=== PATIENT | male | born 1970 | race Caucasian/White ===

== ENCOUNTER → 2017-02-06 | Outpatient (CLI) | payer BC ==
[~2017-02-06] MED LIST: OXCA600T2 PO
--- NOTE | 2017-02-06 13:27 | DIAGNOSTIC IMAGING REPORT ---
LEFT FOREARM 2 VIEWS ROUTINE CLINICAL HISTORY: LEFT ELBOW AND ARM PAIN COMPARISON: None. DISCUSSION: The bones and joint spaces appear intact. There is no evidence of fracture, dislocation or bony disease. There is no evidence for soft tissue swelling. IMPRESSION: Negative study. The above report was generated using voice recognition software. It may contain grammatical, syntax or spelling errors. Electronically signed by: Kushal Cervantes M.D. 02/06/2017 1:26 PM Dictated Date/Time: 02/06/2017 1:25 PM
--- NOTE | 2017-02-06 13:27 | DIAGNOSTIC IMAGING REPORT ---
LEFT HUMERUS MIN 2 VIEWS ROUTINE CLINICAL HISTORY: LEFT ELBOW LEFT ARM PAIN COMPARISON: None. DISCUSSION: The bones and joint spaces appear intact. There is no evidence of fracture, dislocation or bony disease. There is no evidence for soft tissue swelling. IMPRESSION: Negative study. The above report was generated using voice recognition software. It may contain grammatical, syntax or spelling errors. Electronically signed by: Kushal Cervantes M.D. 02/06/2017 1:26 PM Dictated Date/Time: 02/06/2017 1:26 PM
--- NOTE | 2017-02-06 13:28 | DIAGNOSTIC IMAGING REPORT ---
LEFT ELBOW MIN 3 VIEWS ROUTINE CLINICAL HISTORY: LEFT ELBOW COMPARISON: None. DISCUSSION: The bones and joint spaces appear intact. There is no evidence of fracture, dislocation or bony disease. Mild soft tissue edema IMPRESSION: Negative study. Mild soft tissue edema The above report was generated using voice recognition software. It may contain grammatical, syntax or spelling errors. Electronically signed by: Kushal Cervantes M.D. 02/06/2017 1:27 PM Dictated Date/Time: 02/06/2017 1:27 PM
== END | disposition home or self-care (01) ==
LOC: C.RAD1850 12:24
PROVIDERS: ATTEND Physician Assistant Medical
DX: S49.92XA Unspecified injury of left shoulder and upper arm, initial encounter (principal); X58.XXXA Exposure to other specified factors, initial encounter

== ENCOUNTER → 2017-04-08 | Outpatient (CLI) | payer BC ==
--- NOTE | 2017-04-08 09:53 | DIAGNOSTIC IMAGING REPORT ---
RIGHT KNEE MRI HISTORY: RIGHT KNEE PAIN Right COMPARISON STUDY: Right knee 04/02/2017. TECHNIQUE: Multiplanar multisequence MRI of the right knee was performed according to standard department protocol without the use of contrast. FINDINGS: Menisci: The lateral meniscus is intact. Diminutive appearance to the majority of the medial meniscus. This could be due to prior partial meniscectomy. Anterior to the PCL is a 7 mm hypointense focus. This could represent a tear at the posterior root of the medial meniscus. Ligaments: Prior ACL repair. The graft appears to be intact. The PCL and LCL are intact. Mild thickening of the proximal MCL may be due to an old injury. No acute tear identified. Mild edema surrounding the PCL. Extensor mechanism: The quadriceps tendon and patellar ligament are intact. Articular cartilage and bone: No acute fracture or dislocation. Mild subchondral edema within the medial femoral condyle. There is mild thickening and heterogeneous signal within the cartilage of the medial femoral condyle and medial tibial plateau. This is consistent with a chondromalacia. Remaining cartilage spaces are maintained. Joint effusion: None. Soft tissues: Mild anterior subcutaneous edema. IMPRESSION: 1. Prior ACL repair. The graft appears intact. 2. Mild thickening of the proximal MCL without surrounding edema. Therefore, this favors an old injury. 3. Mild edema surrounding the intact PCL. 4. Diminutive appearance to the medial meniscus which favors a partial meniscectomy. There is also a 7 mm hypointense focus anterior to the distal PCL attachment. This could represent a tear at the posterior root of the medial meniscus. 5. Medial chondromalacia.. 6. Mild anterior subcutaneous edema. Electronically signed by: Lennox Xie M.D. 04/08/2017 9:52 AM Dictated Date/Time: 04/08/2017 9:36 AM
== END | disposition home or self-care (01) ==
LOC: C.MRIBC 08:52
PROVIDERS: ATTEND Orthopaedic Surgery
DX: M25.561 Pain in right knee (principal); M94.261 Chondromalacia, right knee; R60.9 Edema, unspecified

== ENCOUNTER 2019-05-01 15:01 | Observation (INO) ==
--- OUTSIDE RECORDS SUMMARY | 2019-05-01 15:04 | External Medical Summary | Continuity of Care Document ---
:1970 Author Name Akshat Orozco Address Unavailable Unavailable , Care Team Providers Name Role Phone Unavailable Unavailable Unavailable AIDEN TELLES M.D., Mary Unavailable Unavailab le Unavailable Unavailable Unavailable Problems Elevated blood pressure (not hypertension) (796.2) (R03.0) History of nicotine dependence (V15.82) (Z87.891) Status: Resolved Right knee pain (719.46) (M25.561) Low O2 saturation (790.91) (R79.81) Chronic low back pain (724.2) (M54.5) Hypertriglyceridemia (272.1) (E78.1) Impaired fasting glucose (790.21) (R73.01) History of [place] (296.00) (F30.9) Status : Resolved OCD (obsessive compulsive disorder) (300.3) (F42.9) Muscle weakness of left arm (728.87) (M62.81) Left upper arm injury (959.2) (S49.92XA) Obstructive pattern present on pulmonary function testing (7 94.2) (R94.2) Abnormal PFTs (pulmonary function tests) (794.2) (R94.2) Flank pain (789.09) (R10.9) Hematuria (599.70) (R31.9) Irritable mood (799.22) (R45.4) 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 Refills: 0 Procedures History of Knee Arthroscopy With Anterior Cruciate Ligament Status: Completed Repair History of Knee Arthroscopy (Therapeutic) Status: Completed Immunizations Immunizations not documented Family History Father Family history of Diabetes Mellitus (V18.0) Status: Active Family history of hypertension (V17.49) (Z82.49) Status: Act ayla Family history of cardiac disorder (V17.49) (Z82.49) Status: Active Family history of diabetes mellitus (V18.0) (Z83.3) Status: Active Social History - Smoking Status Smoker. current status unknown Plan of Treatment Planned Observations Planned Goals not documented Results No Known Results Results not documented
[2019-05-01] MEDS ORDERED: ONDANSETRON INJ 2 MG/ML 2 ML VIAL IV STA (15:57)
[2019-05-01] MEDS ORDERED: SODIUM CHLORIDE 0.9% 1000ML 2,000 ML IV ONE (15:57)
[2019-05-01 16:19] LABS: Appearance Urine Clear (Clear); Bilirubin Urine Negative (Negative); Blood Urine Negative (Negative); Color Urine Yellow; Glucose Urine UA Negative (Negative); Ketones Urine Negative (Negative); Leukocyte Esterase Urine Negative (Negative); Nitrite Urine Negative (Negative); Protein Urine Negative (Negative); Specific Gravity Urine 1.023 (1.000-1.030); Urobilinogen Urine Negative (Negative); pH Urine 7.5 (4.5-7.5)
[2019-05-01 16:29] LABS: Basophils # (auto) 0.03 K/uL (0-0.2); Basophils % (auto) 0.2 %; Eosinophils # (auto) 0.08 K/uL (0-0.5); Eosinophils % (auto) 0.6 %; Hemoglobin 17.2 g/dL (14.0-18.0); Immature Granulocytes # (auto) 0.03 K/uL (0.00-0.02); Immature Granulocytes % (auto) 0.2 %; Lymphocytes # (auto) 1.53 K/uL (1.2-3.4); Lymphocytes % (auto) 11.9 %; Mean Corpuscular Hemoglobin 32.8 pg (25-34); Mean Corpuscular Hgb Conc 35.8 g/dL (32-36); Mean Corpuscular Volume 91.6 fL (80-100); Mean Platelet Volume 11.6 fL (7.4-10.4); Monocytes # (auto) 0.62 K/uL (0.11-0.59); Monocytes % (auto) 4.8 %; Neutrophils # (auto) 10.62 K/uL (1.4-6.5); Neutrophils % (auto) 82.3 %; Platelet Count 166 K/uL (130-400); RDW Coefficient of Variation 12.4 % (11.5-14.5); RDW Standard Deviation 41.6 fL (36.4-46.3); Red Blood Count 5.24 M/uL (4.7-6.1); White Blood Count 12.91 K/uL (4.8-10.8)
[2019-05-01 16:30] LABS: Albumin Level 4.2 gm/dl (3.4-5.0); BUN Creatinine Ratio 15.9 (10-20); Calcium 9.9 mg/dl (8.5-10.1); Creatinine Clr Calc Pharmacy 80.9 ml/min; Est GFR (African American) 73.2; Est GFR (Non-African American) 63.2; Potassium 4.4 mmol/L (3.5-5.1)
[2019-05-01 16:33] LABS: Albumin Globulin Ratio 1.1 (0.9-2); Bilirubin,Total 0.6 mg/dl (0.2-1); Globulin 3.9 gm/dl (2.5-4.0); Total Protein 8.1 gm/dl (6.4-8.2)
--- NOTE | 2019-05-01 16:47 | CT Scan Report ---
ABDOMEN AND PELVIS CT WITHOUT CONTRAST CT DOSE: 935.24 mGy.cm HISTORY: Right-sided flank pain. Right upper quadrant pain. TECHNIQUE: Multiaxial CT images of the abdomen and pelvis were performed without contrast. A dose lo wering technique was utilized adhering to the principles of ALARA. COMPARISON STUDY: None. FINDINGS: Bibasilar linear densities and groundglass densities favor subsegmental atelectasis/depende nt change. No pneumoperitoneum. No pneumatosis. No suspicious lytic or blastic osseous lesions. The l iver, spleen, adrenal glands, and pancreas are unremarkable. No renal or ureteral stones. No hydronep hrosis. No retroperitoneal lymphadenopathy. Bladder wall thickening may be due to underdistention. Th e prostate gland is slightly enlarged. No retroperitoneal lymphadenopathy. The gallbladder is distend ed and there is mild inflammatory change surrounding the gallbladder. Therefore, this likely represen ts acute cholecystitis. Suboptimal evaluation for bowel pathology due to the lack of intravenous and oral contrast. However, there is no definite bowel wall thickening or obstruction. Normal appendix. A few colonic diverticula. No evidence for diverticulitis. The third portion of the duodenum does not clearly cross the midline and the majority of the small bowel is located at the right side of the abd omen. However, the cecum is also located within the right side of the abdomen. Therefore, this sugges ts a variant of intestinal malrotation. IMPRESSION: 1. Distended gallbladder with surrounding inflammatory change. This is consistent with acute cholecys titis. 2. No renal or ureteral stones. No hydronephrosis. 3. No definite bowel wall thickening or obstruction. 4. Normal appendix. 5. The third portion of the duodenum does not clearly cross the midline and the majority of the small bowel is located at the right side of the abdomen. However, the cecum is also located within the rig ht side of the abdomen. Therefore, this suggests a variant of intestinal malrotation. Electronically signed by: Lennox Xie M.D. 05/01/2019 4:46 PM
[2019-05-01] MEDS ORDERED: PIPERACILLIN/TAZOBACTAM 4.5 GM/120 ML BAG IV ONE (17:09)
[2019-05-01] MEDS ORDERED: PIPERACILL/TAZOBAC CONSULT ACTIVE PRN (17:09)
[2019-05-01] MEDS ORDERED: MoRPHine SULFATE 4 MG/ML 1 ML CARP\\VIAL IV STA (17:11)
[2019-05-01] MEDS ORDERED: ePHEDrine sulfate 50 MG/ML SYR ONE (18:17)
[2019-05-01] MEDS ORDERED: fentaNYL citrate 100 MCG/2 ML VIAL ONE (18:17)
[2019-05-01] MEDS ORDERED: ROCURONIUM BROMIDE 10 MG/ML 5 ML VIAL ONE (18:17)
[2019-05-01] MEDS ORDERED: LIDOCAINE HCL 2% 2 ML VIAL/AMP(20MG/ML) INFIL ONE (18:17)
[2019-05-01] MEDS ORDERED: MEPERIDINE HCL 25 MG/ML CARP IV PRN (18:17)
[2019-05-01] MEDS ORDERED: ONDANSETRON INJ 2 MG/ML 2 ML VIAL ONE ×2 (18:17→18:52)
[2019-05-01] MEDS ORDERED: fentaNYL citrate 100 MCG/2 ML VIAL IV PRN (18:17)
[2019-05-01] MEDS ORDERED: ONDANSETRON INJ 2 MG/ML 2 ML VIAL IV PRN (18:17)
[2019-05-01] MEDS ORDERED: PROPOFOL IV EMULSION 10 MG/ML 20 ML VIAL IV ONE (18:17)
[2019-05-01] MEDS ORDERED: NEOSTIGMINE METHYLSULFATE 5 MG/5 ML SYR ONE (18:17)
[2019-05-01] MEDS ORDERED: GLYCOPYRROLATE 0.2 MG/ML VIAL ONE (18:17)
[2019-05-01] MEDS ORDERED: HYDROmorphone INJ 1 MG/ML SYRINGE IV PRN (18:17)
[2019-05-01] MEDS ORDERED: LARYING-O-JET KIT (LTA) ONE (18:17)
[2019-05-01] MEDS ORDERED: PHENYLEPHRINE 100MCG/ML 5ML SYR IV PRN (18:17)
[2019-05-01] MEDS ORDERED: LABETALOL HCL IV 5 MG/ML 20ML IV PRN (18:17)
[2019-05-01] MEDS ORDERED: DEXAMETHASONE SOD INJ 4 MG/ML VIAL ONE ×2 (18:17→18:52)
[2019-05-01] MEDS ORDERED: ATROPINE SULFATE 0.1 MG/ML 10ML SYR IV PRN (18:17)
[2019-05-01] MEDS ORDERED: MIDAZOLAM HCL 1 MG/ML 2ML VIAL ONE (18:17)
[2019-05-01] MEDS ORDERED: ePHEDrine sulfate 50 MG/ML AMP IV PRN (18:17)
--- NOTE | 2019-05-01 18:22 | History & Physical Report ---
Date of Service May 01, 2019 Assessment & Plan (1) S/P ACL surgery: (2) Acute cholecystitis: This patient has right upper quadrant pain with a mildly elevated white blood cell count. He also has CT findings consistent with acute cholecystitis. There is also tenderness in the right upper quadrant. I recommended a laparoscopic cholecystectomy. He has agreed. Of explained to him the procedure of a laparoscopic cholecystectomy and the possible need to convert to an open procedure. I explained some of the possible complications and answered his questions. He has signed a consent form. He also has a variant with possible malrotation although the cecum is in its expected position it does not appear that the duodenum crosses the midline. In review of this with radiology, there does not appear to be any acute issues by CT criteria associated with these findings History of Present Illness Chief Complaint: Right upper quadrant abdominal pain with nausea and vomiting Primary Care Provider: Chadwick Tomlinson MD This is a 49-year-old male who presented to the emergency room with a complaint of pain in the midepigastric area and right upper quadrant. It began this morning after having eaten eggs for breakfast. He stated that the pain was located in the epigastric area and radiated around in the right subcostal region towards his side. It did not go through to his back. He has never had pain in this area before. He has nausea and has had multiple episodes of vomiting. The antiemetics here in the emergency room have taken the nausea away. He has never had jaundice hepatitis or pancreatitis. He has no change in his bowel or bladder habits. He denies melena, hematochezia, dysuria and hematuria. He has not had fever or chills with this. Allergies Allergy/AdvReac Type Severity Reaction Status Date / Time No Known Allergies Allergy Unverified 12/19/15 08:59 Home Medications Home Medications Medication Instructions Recorded Confirmed Type Oxcarbazepine (Trileptal) 600 mg PO BID #0 tab 12/12/15 History Past Med/Surg History Surgical History S/P ACL surgery Right Social History Feels Safe at Home: Yes Smoking Status: Current every day smoker Hx Alcohol Use: Yes (occasional) Review of Systems Review of Systems: All systems reviewed & are unremarkable except as noted in HPI & below Physical Exam Constitutional: no acute distress Neck: trachea midline Respiratory: normal respiratory effort, lungs clear to auscultation Cardiovascular: Rate/Rhythm: regular rate and regular rhythm Gastrointestinal (Abdomen): Inspection/Auscultation: abdomen not distended Percussion/Palpation: + abdomen tender (RUQ and periumbilical area) and abdomen soft Skin: no rashes, warm and dry Lymphatic: no cervical lymphadenopathy Results & Data Vital Signs (Past 12 Hours) Vital Signs Temp Pulse Pulse Resp BP Pulse Ox 05/01/19 17:01 80 19 171/109 H 98 05/01/19 15:52 96 05/01/19 15:43 36.8 C 87 20 96 Laboratory Results 05/01/19 05/01/19 05/01/19 Range/Units 16:08 15:52 15:52 WBC 12.91 H (4.8-10.8) K/uL RBC 5.24 (4.7-6.1) M/uL Hgb 17.2 (14.0-18.0) g/dL Hct 48.0 (42-52) % MCV 91.6 (80-100) fL MCH 32.8 (25-34) pg MCHC 35.8 (32-36) g/dL RDW Std Deviation 41.6 (36.4-46.3) fL RDW Coeff of Aneudy 12.4 (11.5-14.5) % Plt Count 166 (130-400) K/uL MPV 11.6 H (7.4-10.4) fL Immature Gran % (Auto) 0.2 % Neut % (Auto) 82.3 % Lymph % (Auto) 11.9 % [place] % (Auto) 4.8 % Eos % (Auto) 0.6 % Baso % (Auto) 0.2 % Immature Gran # (Auto) 0.03 H (0.00-0.02) K/uL Neut # (Auto) 10.62 H (1.4-6.5) K/uL Lymph # (Auto) 1.53 (1.2-3.4) K/uL [place] # (Auto) 0.62 H (0.11-0.59) K/uL Eos # (Auto) 0.08 (0-0.5) K/uL Baso # (Auto) 0.03 (0-0.2) K/uL Sodium 142 (136-145) mmol/L Potassium 4.4 (3.5-5.1) mmol/L Chloride 107 (98-107) mmol/L Carbon Dioxide 29 (21-32) mmol/L Anion Gap 6.0 (3-11) BUN 21 H (7-18) mg/dl Creatinine 1.30 (0.6-1.4) mg/dl Est Cr Clr Drug Dosing 80.9 ml/min Est GFR ( Amer) 73.2 Est GFR (Non-Af Amer) 63.2 BUN/Creatinine Ratio 15.9 (10-20) Glucose 131 H (70-99) mg/dl Calcium 9.9 (8.5-10.1) mg/dl Total Bilirubin 0.6 (0.2-1) mg/dl AST 23 (15-37) U/L ALT 41 (12-78) U/L Alkaline Phosphatase 66 (45-117) U/L Total Protein 8.1 (6.4-8.2) gm/dl Albumin 4.2 (3.4-5.0) gm/dl Globulin 3.9 (2.5-4.0) gm/dl Albumin/Globulin Ratio 1.1 (0.9-2) Lipase 122 (73-393) U/L Urine Color Yellow Urine Appearance Clear (Clear) Urine pH 7.5 (4.5-7.5) Ur Specific [place] 1.023 (1.000-1.030) Urine Protein Negative (Negative) Urine Glucose (UA) Negative (Negative) Urine Ketones Negative (Negative) Urine Blood Negative (Negative) Urine Nitrite Negative (Negative) Urine Bilirubin Negative (Negative) Urine Urobilinogen Negative (Negative) Ur Leukocyte Esterase Negative (Negative) Diagnostic Findings ABDOMEN AND PELVIS CT WITHOUT CONTRAST CT DOSE: 935.24 mGy.cm HISTORY: Right-sided flank pain. Right upper quadrant pain. TECHNIQUE: Multiaxial CT images of the abdomen and pelvis were performed without contrast. A dose lowering technique was utilized adhering to the principles of ALARA. COMPARISON STUDY: None. FINDINGS: Bibasilar linear densities and groundglass densities favor s ubsegmental atelectasis/dependent change. No pneumoperitoneum. No pneumatosis. No suspicious lytic or blastic osseous lesions. The liver, spleen, adrenal glands, and pancreas are unremarkable. No renal or ureteral stones. No hydronephrosis. No retroperitoneal lymphadenopathy. Bladder wall thickening may be due to underdistention. The prostate gland is slightly enlarged. No retroperitoneal lymphadenopathy. The gallbladder is distended and there is mild inflammatory change surrounding the gallbladder. Therefore, this likely represents acute cholecystitis. Suboptimal evaluation for bowel pathology due to the lack of intravenous and oral contrast. However, there is no definite bowel wall thickening or obstruction. Normal appendix. A few colonic diverticula. No evidence for diverticulitis. The third portion of the duodenum does not clearly cross the midline and the majority of the small bowel is located at the right side of the abdomen. However, the cecum is also located within the right side of the abdomen. Therefore, this suggests a variant of intestinal malrotation. IMPRESSION: 1. Distended gallbladder with surrounding inflammatory change. This is consistent with acute cholecystitis. 2. No renal or ureteral stones. No hydronephrosis. 3. No definite bowel wall thickening or obstruction. 4. Normal appendix. 5. The third portion of the duodenum does not clearly cross the midline and the majority of the small bowel is located at the right side of the abdomen. However, the cecum is also located within the right side of the abdomen. Therefore, this suggests a variant of intestinal malrotation.
[2019-05-01] MEDS ORDERED: CEFAZOLIN 250 MG/ML 1 GM VIAL ONE (18:23)
[2019-05-01] MEDS ORDERED: BUPIVACAINE 0.5 % 5 MG/1 ML MPF 30ML VIAL ONE (18:23)
[2019-05-01] MEDS ORDERED: HEPARIN (PORCINE) 1000 UNIT/ML 10 ML (CATH LAB USE ONLY) ONE (18:23)
--- NOTE | 2019-05-01 18:30 | Anesthesiology Consultation ---
Date of Service May 01, 2019 Assessment & Plan (1) Encounter for pre-operative examination: Chart Review Chart Review: Acceptable Risk for Surgery and Patient NOT seen in Pre Admission Testing History Surgery Operation Date: 05/01/19 19:00 Proposed Procedures p Laparoscopic Cholecystectomy - Kushal May MD Height/Weight Height: 5 ft 10 in Weight: 103.1 kg Allergies Allergy/AdvReac Type Severity Reaction Status Date / Time No Known Allergies Allergy Unverified 12/19/15 08:59 Medications Home Medications Medication Instructions Recorded Confirmed Last Taken Oxcarbazepine (Trileptal) 600 mg PO BID #0 tab 12/12/15 Unknown Past Medical History Medical History Obesity Smoker Past Surgical History Surgical History S/P ACL surgery Right Social History Smoking Status: Current every day smoker Hx Alcohol Use: Yes (occasional) Physical Exam Vital Signs Last Vital Signs Temp 36.8 C 05/01/19 15:43 Pulse 80 05/01/19 17:01 Resp 19 05/01/19 17:01 BP 171/109 H 05/01/19 17:01 Pulse Ox 98 05/01/19 17:01 Testing Laboratory Results 05/01/19 15:52 05/01/19 15:52 Urine Color Yellow 05/01/19 16:08 Urine Appearance Clear (Clear) 05/01/19 16:08 Urine pH 7.5 (4.5-7.5) 05/01/19 16:08 Ur Specific [place] 1.023 (1.000-1.030) 05/01/19 16:08 Urine Protein Negative (Negative) 05/01/19 16:08 Urine Glucose (UA) Negative (Negative) 05/01/19 16:08 Urine Ketones Negative (Negative) 05/01/19 16:08 Urine Nitrite Negative (Negative) 05/01/19 16:08 Ur Leukocyte Esterase Negative (Negative) 05/01/19 16:08 Electrocardiogram Date: 05/01/19 Findings: + NSR @ (86)
[2019-05-01] MEDS ORDERED: SUCCINYLCHOLINE CHLORIDE 20 MG/ML 10 ML VIAL ONE (19:38)
[2019-05-01] MEDS ORDERED: KETOROLAC 30 MG/ML VIAL ONE (20:11)
--- NOTE | 2019-05-01 20:37 | Post Operative Brief Note ---
Immediate Post Op Note v1 Date of Surgery May 01, 2019 Pre & Post Diagnosis Operation Date: 05/01/19 19:00 Pre-Op Diagnosis: Acute cholecystitis Post-Op Diagnosis: Acute cholecystitis Procedure Operation Date: 05/01/19 19:00 Actual Procedures p Laparoscopic Cholecystectomy(Not Applicable) - Kushal May MD Surgeon Kushal May MD Hydrographic Surveyor None Estimated Blood Loss 10 Findings Consistent with Post-Op Diagnosis Specimens Gallbladder and contents Anesthesia Type General Complications none
--- NOTE | 2019-05-01 21:03 | Anesthesiology Progress Note ---
Date of Service May 01, 2019 Anesthesia Post Procedure Vital Signs Vital Signs: Temp Pulse Pulse Pulse Resp BP Pulse Ox 05/01/19 21:00 85 16 166/88 H 100 05/01/19 20:51 36.4 C L 91 H 16 150/105 H 97 05/01/19 17:01 80 19 171/109 H 98 05/01/19 15:52 96 05/01/19 15:43 36.8 C 87 20 96 Pain Intensity Abdomen: Pain Intensity: 0 Transfer of Care Handoff Completed per policy Notes Mental Status: alert / awake / arousable Patient Amnestic to Procedure: Yes Nausea / Vomiting: adequately controlled Pain: adequately controlled Airway Patency, RR, SpO2: stable & adequate BP & HR: stable & adequate Hydration State: stable & adequate Anesthetic Complications: no major complications apparent and Pt Satisfied with anesthetic care Notes: The patient is awake and comfortable.
[2019-05-01] MEDS ORDERED: MoRPHine SULFATE 4 MG/ML 1 ML CARP\\VIAL IV PRN (21:39)
[2019-05-01] MEDS ORDERED: OXYCODONE/ACETAMINOPHEN 5mg/325mg TAB PO PRN (21:39)
--- NOTE | 2019-05-01 23:16 | Emergency Department Note ---
Entered by Marlee Moreau acting as a scribe for Eric Cam DO History of Present Illness General Chief complaint: Flank Pain Stated complaint: ABDOMINAL AND KIDNEY PAIN Source: patient History of Present Illness Provider complaint: abdominal pain Onset (ago): hour(s) 5 Location: abdomen and right Radiation: flank Maximum Pain Intensity: 6 Exacerbated By: + movement Associated symptoms: + other (-runny nose); no cough and no fever/chills The patient is a 49 year old male who presents to the Emergency Room with complaints of right upper abdominal pain that started at 1100 today while he was sitting. He reports that the pain radiates to his right flank. He states that he has nausea and vomiting because of the pain. He notes that he has vomited 5-6 times today. The patient states that the maximum pain was 8/10 earlier today, but has now slighted been alleviated. The patient reports that the pain worsens with movement. He denies any cough, runny nose, fever, or chills. The patient denies any past abdominal surgeries. He mentions that his last bowel movement was last night. Home Medications Home Medications Medication Instructions Recorded Confirmed Type Oxcarbazepine (Trileptal) 600 mg PO BID #0 tab 12/12/15 History Allergies Allergy/AdvReac Type Severity Reaction Status Date / Time No Known Allergies Allergy Unverified 12/19/15 08:59 Past Med/Surg History Medical History Obesity Smoker Surgical History S/P ACL surgery Right Social History Preferred Language: Chinese Communication Ability: Effective Hemodialysis Lab Technician Required: No Beliefs That Will Affect Care: None Current Living Situation: Spouse Feels Safe at Home: Yes Safety Concerns: Feels Safe At This Time Smoking Status: Current some day smoker Tobacco Type: cigarettes ; Hx Alcohol Use: Yes Alcohol type: beer Hx Substance Use: No Review of Systems See HPI for pertinent positives & negatives. and A total of 10 systems reviewed and were otherwise negative Physical Exam Vital Signs Vital Signs - 24 hr 05/01/19 15:43 05/01/19 15:52 05/01/19 17:01 Temperature 36.8 C Temperature Source Oral Sepsis Recent Fever Within 48 Hours No Sepsis New/Unexplained Change in Mental Status No Sepsis Action Taken by Nursing No Action Required Pulse Rate 87 Pulse Rate [Apical] Pulse Rate [Finger] 80 Pulse Rhythm [Apical] Respiratory Rate 20 19 Respiratory Effort / Characteristics Respiratory Depth Normal Respiratory Pattern Blood Pressure [Right Arm] 171/109 H Blood Pressure Mean [Right Arm] 129 Blood Pressure Position [Right Arm] Pulse Oximetry 96 96 98 Oxygen Delivery Method Room Air Room Air Room Air Oxygen Flow Rate 05/01/19 20:51 Temperature 36.4 C L Temperature Source Temporal Artery Scan Sepsis Recent Fever Within 48 Hours Sepsis New/Unexplained Change in Mental Status Sepsis Action Taken by Nursing Pulse Rate Pulse Rate [Apical] 91 H Pulse Rate [Finger] Pulse Rhythm [Apical] Regular Respiratory Rate 16 Respiratory Effort / Characteristics Non-Labored Spontaneous Respiratory Depth Normal Respiratory Pattern Regular Blood Pressure [Right Arm] 150/105 H Blood Pressure Mean [Right Arm] 120 Blood Pressure Position [Right Arm] Semi-fowlers Pulse Oximetry 97 Oxygen Delivery Method Oxymask Oxygen Flow Rate 5 GENERAL: sitting up in bed, mild distress, holding right upper quadrant EYE EXAM: normal conjunctiva OROPHARYNX: no exudate, no erythema, lips, buccal mucosa, and tongue normal and mucous membranes are moist NECK: supple, no nuchal rigidity, no adenopathy, non-tender LUNGS: Clear to auscultation. Normal chest wall mechanics HEART: no murmurs, S1 normal and S2 normal ABDOMEN: abdomen soft, tenderness to palpation of right upper quadrant, normo- active bowel sounds, no masses, no rebound or guarding. BACK: Back is symmetrical on inspection and there is no deformity, no midline tenderness, no CVA tenderness. SKIN: no rashes and no bruising UPPER EXTREMITIES: upper extremities are grossly normal. LOWER EXTREMITIES: No pitting edema. NEURO EXAM: Normal sensorium, cranial nerves II-XII grossly intact, normal speech, no gross weakness of arms, no gross weakness of legs. Course ED COURSE: Vital signs were reviewed and showed normotensive. The patients medical record was reviewed The above diagnostic studies were performed and reviewed. ED treatments and interventions as stated above. 1554: The patient was evaluated in room D4B. A complete history and physical examination was performed. 1721: I reviewed the patient's case with Dr. May- General Surgery [facility]. He will evaluate the patient for further management. 1725: Upon reevaluation, the patient is resting comfortably. I discussed my findings with the patient and he understands and agrees with the treatment plan. Based on the patients age, coexisting illnesses, exam and lab findings the decision to treat as an inpatient was made. The patient remained stable while under my care. The patient will be evaluated for further management. Administered Medications Discontinued Medications Bupivacaine HCl (Marcaine 0.5% Mpf) Confirm Administered Dose 30 ml .ROUTE .STK- MED ONE Stop: 05/01/19 18:24 Last Admin: 05/01/19 20:29 Dose: 30 ml Documented by: [id number] Cefazolin Sodium (Ancef) Confirm Administered Dose 1,000 mg .ROUTE .STK-MED ONE Stop: 05/01/19 18:24 Last Admin: 05/01/19 20:13 Dose: 1,000 mg Documented by: [id number] Heparin Sodium (Porcine) (Heparin Iv Bolus (Child Welfare Caseworker Use Only)) Confirm Administered Dose 10,000 units .ROUTE .STK-MED ONE Stop: 05/01/19 18:24 Last Admin: 05/01/19 20:13 Dose: 5,000 units Documented by: [id number] Sodium Chloride (Nss 1000ml) 2,000 mls @ 999 mls/hr IV .Q2H1M ONE Stop: 05/01/19 17:57 Last Infusion: 05/01/19 18:04 Dose: 0 mls/hr Documented by: [id number] Admin: 05/01/19 16:02 Dose: 999 mls/hr Documented by: [id number] Piperacillin Sod/Tazobactam Sod (Zosyn) 4.5 gm in 120 mls @ 240 mls/hr IV NOW ONE Stop: 05/01/19 17:38 Last Infusion: 05/01/19 17:49 Dose: 0 mls/hr Documented by: [id number] Admin: 05/01/19 17:17 Dose: 240 mls/hr Documented by: [id number] Morphine Sulfate (Morphine Sulfate) 4 mg IV NOW STA Stop: 05/01/19 17:12 Last Admin: 05/01/19 17:17 Dose: 4 mg Documented by: [id number] Ondansetron HCl (Zofran) 4 mg IV NOW STA Stop: 05/01/19 15:58 Last Admin: 05/01/19 16:03 Dose: 4 mg Documented by: [id number] Medical Decision Making Differential Diagnosis Differential diagnoses includes but is not limited to gastritis, peptic ulcer disease, GERD, gallbladder disease, pancreatitis, small bowel obstruction, acute coronary syndrome, pericarditis, ischemic bowel, irritable bowel disease, irritable bowel syndrome, appendicitis, diverticulitis, malignancy, hernia, uri nary tract infection, torsion, perforation, trauma, infectious. Medical Records Attestation: I reviewed the patient's medical records. Home Medications Current Medication List: was personally reviewed by me Laboratory Data Attestation: I reviewed the patient's lab results. Result diagrams: 05/01/19 15:52 05/01/19 15:52 Lab Results 05/01/19 05/01/19 05/01/19 Range/Units 15:52 15:52 16:08 WBC 12.91 H (4.8-10.8) K/uL RBC 5.24 (4.7-6.1) M/uL Hgb 17.2 (14.0-18.0) g/dL Hct 48.0 (42-52) % MCV 91.6 (80-100) fL MCH 32.8 (25-34) pg MCHC 35.8 (32-36) g/dL RDW Std Deviation 41.6 (36.4-46.3) fL RDW Coeff of Aneudy 12.4 (11.5-14.5) % Plt Count 166 (130-400) K/uL MPV 11.6 H (7.4-10.4) fL Immature Gran % (Auto) 0.2 % Neut % (Auto) 82.3 % Lymph % (Auto) 11.9 % [place] % (Auto) 4.8 % Eos % (Auto) 0.6 % Baso % (Auto) 0.2 % Immature Gran # (Auto) 0.03 H (0.00-0.02) K/uL Neut # (Auto) 10.62 H (1.4-6.5) K/uL Lymph # (Auto) 1.53 (1.2-3.4) K/uL [place] # (Auto) 0.62 H (0.11-0.59) K/uL Eos # (Auto) 0.08 (0-0.5) K/uL Baso # (Auto) 0.03 (0-0.2) K/uL Sodium 142 (136-145) mmol/L Potassium 4.4 (3.5-5.1) mmol/L Chloride 107 (98-107) mmol/L Carbon Dioxide 29 (21-32) mmol/L Anion Gap 6.0 (3-11) BUN 21 H (7-18) mg/dl Creatinine 1.30 (0.6-1.4) mg/dl Est Cr Clr Drug Dosing 80.9 ml/min Est GFR ( Amer) 73.2 Est GFR (Non-Af Amer) 63.2 BUN/Creatinine Ratio 15.9 (10-20) Glucose 131 H (70-99) mg/dl Calcium 9.9 (8.5-10.1) mg/dl Total Bilirubin 0.6 (0.2-1) mg/dl AST 23 (15-37) U/L ALT 41 (12-78) U/L Alkaline Phosphatase 66 (45-117) U/L Total Protein 8.1 (6.4-8.2) gm/dl Albumin 4.2 (3.4-5.0) gm/dl Globulin 3.9 (2.5-4.0) gm/dl Albumin/Globulin Ratio 1.1 (0.9-2) Lipase 122 (73-393) U/L Urine Color Yellow Urine Appearance Clear (Clear) Urine pH 7.5 (4.5-7.5) Ur Specific [place] 1.023 (1.000-1.030) Urine Protein Negative (Negative) Urine Glucose (UA) Negative (Negative) Urine Ketones Negative (Negative) Urine Blood Negative (Negative) Urine Nitrite Negative (Negative) Urine Bilirubin Negative (Negative) Urine Urobilinogen Negative (Negative) Ur Leukocyte Esterase Negative (Negative) Imaging Data Radiologist's Impression: Radiology results as stated below per my review and the radiologist's interpretation: ABDOMEN AND PELVIS CT WITHOUT CONTRAST CT DOSE: 935.24 mGy.cm HISTORY: Right-sided flank pain. Right upper quadrant pain. TECHNIQUE: Multiaxial CT images of the abdomen and pelvis were performed without contrast. A dose lowering technique was utilized adhering to the principles of ALARA. COMPARISON STUDY: None. FINDINGS: Bibasilar linear densities and groundglass densities favor subsegmental atelectasis/dependent change. No pneumoperitoneum. No pneumatosis. No suspicious lytic or blastic osseous lesions. The liver, spleen, adrenal glands, and pancreas are unremarkable. No renal or ureteral stones. No hydronephrosis. No retroperitoneal lymphadenopathy. Bladder wall thickening may be due to underdistention. The prostate gland is slightly enlarged. No retroperitoneal lymphadenopathy. The gallbladder is distended and there is mild inflammatory change surrounding the gallbladder. Therefore, this likely represents acute cholecystitis. Suboptimal evaluation for bowel pathology due to the lack of intravenous and oral contrast. However, there is no definite bowel wall thickening or obstruction. Normal appendix. A few colonic diverticula. No evidence for diverticulitis. The third portion of the duodenum does not clearly cross the midline and the majority of the small bowel is located at the right side of the abdomen. However, the cecum is also located within the right side of the abdomen. Therefore, this suggests a variant of intestinal malrotation. IMPRESSION: 1. Distended gallbladder with surrounding inflammatory change. This is consistent with acute cholecystitis. 2. No renal or ureteral stones. No hydronephrosis. 3. No definite bowel wall thickening or obstruction. 4. Normal appendix. 5. The third portion of the duodenum does not clearly cross the midline and the majority of the small bowel is located at the right side of the abdomen. However, the cecum is also located within the right side of the abdomen. Therefore, this suggests a variant of intestinal malrotation. Electronically signed by: Lennox Xie M.D. 05/01/2019 4:46 PM Blood Pressure Blood Pressure Findings: Elevated blood pressure Blood Pressure Disposition: further management by hospitalist NASRA Cunningham Patient is a 49-year-old male who presents the ER for right upper quadrant abdominal pain associated with nausea and vomiting that has been present for the past 24 hours. IV was established blood work was obtained shows mild leukocytosis of 13,000. No significant anemia. BMP along with LFTs bilirubin and lipase was unremarkable. UA was negative. CT abdomen pelvis shows acute cholecystitis. He was given IV fluids and IV Zosyn along with IV morphine. Patient was updated bedside. Discussed with general surgery and patient was admitted for acute cholecystitis. Impression & Plan Acute cholecystitis, Leukocytosis Discharge Plan Visit Data *Final* Discharge Date/Time: 05/01/19 18:16 Chief Complaint: Flank Pain Stated Complaint: ABDOMINAL AND KIDNEY PAIN ED Provider: Eric Cam Discharge Problem: Acute cholecystitis, Leukocytosis Patient Disposition: Still a Patient Discharge Instructions Interventions: ED Discharge Assessment Last Done: 05/01/19 18:16 Discharge Problem: Leukocytosis Qualifiers: Leukocytosis type: unspecified Qualified Code(s): D72.829 - Elevated white blood cell count, unspecified The scribe's documentation has been prepared under my direction and personally reviewed by me in its entirety. I confirm that the note above accurately reflects all work, treatment, procedures, and medical decision making performed by me.
--- NOTE | 2019-05-01 23:29 | Operative Report ---
DATE OF OPERATION: 05/01/2019 PREOPERATIVE DIAGNOSIS: Acute cholecystitis. POSTOPERATIVE DIAGNOSIS: Acute cholecystitis. PROCEDURE: Laparoscopic cholecystectomy. SURGEON: Kushal May MD FINDINGS: The gallbladder was dilated. The cystic duct was dilated. The liver was of normal size and contour. The small bowel was mostly to the right side of the abdomen confirming CT findings. The transverse colon was mildly dilated. There were adhesions of the omentum to the gallbladder. The gallbladder wall was thickened and it was distended. There was sludge and a few small stones within the lumen. TECHNIQUE: The patient was given a general anesthetic and the area was prepped and draped in the usual sterile fashion. A transverse incision was made below the umbilicus, carried down through the subcutaneous tissue to the fascia which was grasped with 2 Davion clamps and incised between. The peritoneum was identified, incised and the introducer was placed bluntly. The abdomen was then insufflated to a pressure of 15 mmHg with carbon dioxide. The upper midline, midclavicular and anterior axillary introducers were placed under direct vision through small skin incisions. I attempted to place traction on the gallbladder after the patient was placed in steep reverse Trendelenburg. The grasper would not grasp the thickened wall of the gallbladder and so the drainage needle was passed through the midclavicular introducer under direct vision and it pierced the wall of the gallbladder and the gallbladder was drained. There was yellow bile. I was able to then grasp the gallbladder and elevate it. I was then able to peel the adhesions away from the gallbladder with ease. These adhesions were flimsy. There was a lot of edema surrounding the gallbladder between the adhesions and the gallbladder. This dissection was carried down to the infundibulum and neck area of the gallbladder. The infundibulum was dissected away from the liver on the lateral side as well as the body allowing for better mobility. Further dissection of thickened lymphatics and connective tissue over the anterior surface of the infundibulum was peeled towards the common bile duct. This allowed me to identify the anterior wall of the cystic duct. I then dissected medial to the cystic duct and opened the triangle of Calot and dissected the gallbladder away from the liver there. The cystic artery was seen running anteromedial to the cystic duct and a plane was established between those 2 structures. There appeared to be an accessory vessel extending off the cystic artery extending directly to the liver. This was isolated, clamped and divided, which allowed me better access to the triangle of Calot. The infundibulum was dissected away from the liver on that medial side. I was then able to perform dissection in the division of the connective tissue and lymphatics posterior to the neck of the gallbladder working up, then towards the body of the gallbladder which created an adequate window and allowed me to confirm that I had identified the cystic duct gallbladder junction. Further skeletonization by removing some connective tissue away from the posterior wall of the cystic duct was performed which completely skeletonized it. Two large clips were placed across the cystic duct proximally 1 was placed near the gallbladder and it was divided. The graspers had created some holes in the gallbladder which allowed for drainage of some of the bile and sludge. The cystic artery was then clamped twice proximally, one near the gallbladder and divided. The gallbladder was then peeled off the liver bed. There was 1 other either large lymphatic or posterior branch of the artery that was clipped and divided, which allowed me then to complete dissection of the gallbladder away from the liver. It was placed into an Endobag and brought out through the upper midline incision. That introducer was replaced. The subdiaphragmatic and subhepatic spaces were irrigated and the irrigation was removed. That was repeated until the return was clear. The clips were inspected and were intact. There was no bile leak. There was no bleeding. There was no bleeding from the gallbladder bed of the liver. The gas was allowed to escape and introducers were removed. The fascia of the umbilical and upper midline introducer sites was closed with interrupted 0 Vicryl and the skin of all the incisions was closed with 4-0 Monocryl in either an interrupted or running subcuticular fashion. The skin was anesthetized with 0.5% Marcaine. The skin was cleansed, dried, benzoin placed and Steri-Strips applied. Estimated blood loss was 10 mL. Sponge, needle and instrument counts were correct prior to closure. The patient tolerated the surgical procedure without complication and was transferred to recovery. I attest to the content of the Intraoperative Record and any orders documented therein. Any exception s are noted below.
[2019-05-01] MEDS: SODIUM CHLORIDE 0.9% 1000ML 1,000 ML IV SCH (23:40)
[2019-05-02 05:51] LABS: Hematocrit (blood only) 41.2 % (42-52); Hemoglobin 14.5 g/dL (14.0-18.0); Immature Granulocytes # (auto) 0.01 K/uL (0.00-0.02); Immature Granulocytes % (auto) 0.1 %; Lymphocytes % (auto) 7.8 %; Mean Corpuscular Hemoglobin 32.1 pg (25-34); Mean Corpuscular Hgb Conc 35.2 g/dL (32-36); Mean Corpuscular Volume 91.2 fL (80-100); Mean Platelet Volume 11.6 fL (7.4-10.4); Monocytes # (auto) 0.26 K/uL (0.11-0.59); Monocytes % (auto) 2.5 %; Neutrophils # (auto) 9.15 K/uL (1.4-6.5); Neutrophils % (auto) 89.6 %; Platelet Count 145 K/uL (130-400); RDW Coefficient of Variation 12.3 % (11.5-14.5); RDW Standard Deviation 40.6 fL (36.4-46.3); Red Blood Count 4.52 M/uL (4.7-6.1); White Blood Count 10.22 K/uL (4.8-10.8)
[2019-05-02] MEDS ORDERED: INFLUENZA VIRUS QUAD VACCINE 0.5 ML SYR IM ONE (08:15)
[2019-05-02] MEDS ORDERED: INFLUENZA ADMINISTRATION CHARGE ONE (08:15)
[2019-05-02] MEDS: SODIUM CHLORIDE 0.9% 1000ML 1,000 ML IV SCH (09:40)
--- NOTE | 2019-05-02 09:49 | Surgery Progress Note ---
Date of Service May 02, 2019 Assessment & Plan (1) Acute cholecystitis: POD # 1 s/p laparoscopic cholecystectomy -vitals stable,afebrile - preop pain resolved, post op pain controlled - no n/v, gabrielle diet - adequate urine output Plan: Discharge home today Discharge instructions reviewed f/u surgical office next week Rx PO Percocet prn pain sent to pharmacy dr. beckman has seen and examined pt, agrees with above. Subjective feeling good, preoperative pain resolved soreness at incisions no n/v tolerated regular diet no flatus or bowel movement urinating without any difficulty Physical Exam Constitutional: WD/WN, vitals as above no acute distress Gastrointestinal (Abdomen): Inspection/Auscultation: abdomen normal to inspection; abdomen not distended Percussion/Palpation: + abdomen tender (at incision sites appropriate post op) and abdomen soft; no guarding and abdomen not rigid Skin: no rashes, warm and dry + incision (Covered with dressings, mild spotting present) Psychiatric: A+Ox3, euthymic affect Results & Data Vital Signs (Past 12 Hours) Vital Signs Temp Pulse Resp BP Pulse Ox 05/02/19 07:46 36.9 C 76 14 105/65 93 05/02/19 03:41 36.9 C 86 18 109/69 91 05/02/19 00:45 36.9 C 89 20 127/79 90 05/01/19 23:00 37.1 C 84 18 126/75 90 05/01/19 22:33 36.9 C 86 18 150/89 H 94 05/01/19 22:06 36.9 C 87 18 130/82 92 Laboratory Results 05/02/19 05/01/19 05/01/19 Range/Units 05:21 16:08 15:52 WBC 10.22 (4.8-10.8) K/uL RBC 4.52 L (4.7-6.1) M/uL Hgb 14.5 (14.0-18.0) g/dL Hct 41.2 L (42-52) % MCV 91.2 (80-100) fL MCH 32.1 (25-34) pg MCHC 35.2 (32-36) g/dL RDW Std Deviation 40.6 (36.4-46.3) fL RDW Coeff of Aneudy 12.3 (11.5-14.5) % Plt Count 145 (130-400) K/uL MPV 11.6 H (7.4-10.4) fL Immature Gran % (Auto) 0.1 % Neut % (Auto) 89.6 % Lymph % (Auto) 7.8 % [place] % (Auto) 2.5 % Eos % (Auto) 0.0 % Baso % (Auto) 0.0 % Immature Gran # (Auto) 0.01 (0.00-0.02) K/uL Neut # (Auto) 9.15 H (1.4-6.5) K/uL Lymph # (Auto) 0.80 L (1.2-3.4) K/uL [place] # (Auto) 0.26 (0.11-0.59) K/uL Eos # (Auto) 0.00 (0-0.5) K/uL Baso # (Auto) 0.00 (0-0.2) K/uL Sodium 142 (136-145) mmol/L Potassium 4.4 (3.5-5.1) mmol/L Chloride 107 (98-107) mmol/L Carbon Dioxide 29 (21-32) mmol/L Anion Gap 6.0 (3-11) BUN 21 H (7-18) mg/dl Creatinine 1.30 (0.6-1.4) mg/dl Est Cr Clr Drug Dosing 80.9 ml/min Est GFR ( Amer) 73.2 Est GFR (Non-Af Amer) 63.2 BUN/Creatinine Ratio 15.9 (10-20) Glucose 131 H (70-99) mg/dl Calcium 9.9 (8.5-10.1) mg/dl Total Bilirubin 0.6 (0.2-1) mg/dl AST 23 (15-37) U/L ALT 41 (12-78) U/L Alkaline Phosphatase 66 (45-117) U/L Total Protein 8.1 (6.4-8.2) gm/dl Albumin 4.2 (3.4-5.0) gm/dl Globulin 3.9 (2.5-4.0) gm/dl Albumin/Globulin Ratio 1.1 (0.9-2) Lipase 122 (73-393) U/L Urine Color Yellow Urine Appearance Clear (Clear) Urine pH 7.5 (4.5-7.5) Ur Specific [place] 1.023 (1.000-1.030) Urine Protein Negative (Negative) Urine Glucose (UA) Negative (Negative) Urine Ketones Negative (Negative) Urine Blood Negative (Negative) Urine Nitrite Negative (Negative) Urine Bilirubin Negative (Negative) Urine Urobilinogen Negative (Negative) Ur Leukocyte Esterase Negative (Negative) 05/01/19 Range/Units 15:52 WBC 12.91 H (4.8-10.8) K/uL RBC 5.24 (4.7-6.1) M/uL Hgb 17.2 (14.0-18.0) g/dL Hct 48.0 (42-52) % MCV 91.6 (80-100) fL MCH 32.8 (25-34) pg MCHC 35.8 (32-36) g/dL RDW Std Deviation 41.6 (36.4-46.3) fL RDW Coeff of Aneudy 12.4 (11.5-14.5) % Plt Count 166 (130-400) K/uL MPV 11.6 H (7.4-10.4) fL Immature Gran % (Auto) 0.2 % Neut % (Auto) 82.3 % Lymph % (Auto) 11.9 % [place] % (Auto) 4.8 % Eos % (Auto) 0.6 % Baso % (Auto) 0.2 % Immature Gran # (Auto) 0.03 H (0.00-0.02) K/uL Neut # (Auto) 10.62 H (1.4-6.5) K/uL Lymph # (Auto) 1.53 (1.2-3.4) K/uL [place] # (Auto) 0.62 H (0.11-0.59) K/uL Eos # (Auto) 0.08 (0-0.5) K/uL Baso # (Auto) 0.03 (0-0.2) K/uL Sodium (136-145) mmol/L Potassium (3.5-5.1) mmol/L Chloride (98-107) mmol/L Carbon Dioxide (21-32) mmol/L Anion Gap (3-11) BUN (7-18) mg/dl Creatinine (0.6-1.4) mg/dl Est Cr Clr Drug Dosing ml/min Est GFR ( Amer) Est GFR (Non-Af Amer) BUN/Creatinine Ratio (10-20) Glucose (70-99) mg/dl Calcium (8.5-10.1) mg/dl Total Bilirubin (0.2-1) mg/dl AST (15-37) U/L ALT (12-78) U/L Alkaline Phosphatase (45-117) U/L Total Protein (6.4-8.2) gm/dl Albumin (3.4-5.0) gm/dl Globulin (2.5-4.0) gm/dl Albumin/Globulin Ratio (0.9-2) Lipase (73-393) U/L Urine Color Urine Appearance (Clear) Urine pH (4.5-7.5) Ur Specific [place] (1.000-1.030) Urine Protein (Negative) Urine Glucose (UA) (Negative) Urine Ketones (Negative) Urine Blood (Negative) Urine Nitrite (Negative) Urine Bilirubin (Negative) Urine Urobilinogen (Negative) Ur Leukocyte Esterase (Negative)
--- NOTE | 2019-05-03 10:57 | Discharge Summary ---
Date of Service May 03, 2019 Admission HPI Per Admitting Provider This is a 49-year-old male who presented to the emergency room with a complaint of pain in the midepigastric area and right upper quadrant. It began this morning after having eaten eggs for breakfast. He stated that the pain was located in the epigastric area and radiated around in the right subcostal region towards his side. It did not go through to his back. He has never had pain in this area before. He has nausea and has had multiple episodes of vomiting. The antiemetics here in the emergency room have taken the nausea away. He has never had jaundice hepatitis or pancreatitis. He has no change in his bowel or bladder habits. He denies melena, hematochezia, dysuria and hematuria. He has not had fever or chills with this. Principal Diagnosis Acute calculous cholecystitis Discharge Data Allergies Allergy/AdvReac Type Severity Reaction Status Date / Time No Known Allergies Allergy Unverified 12/19/15 08:59 Consultations 05/01/19 17:21 ED Decision to Admit Stat Procedures Performed Operation Date: 05/01/19 19:00 Actual Procedures p Laparoscopic Cholecystectomy(Not Applicable) - Kushal May MD Ordered Studies 05/01/19 16:02 CT abd pelvis wo con Stat Hospital Course (1) Acute cholecystitis: Patient was taken to operating room from ED for laparoscopic cholecystectomy by Dr. May. Patient found to have acute cholecystitis. Patient tolerated procedure well and was transferred to recovery room and then medical/surgical floor for postoperative care. Patients diet was advanced to regular diet, IV fluids were continued , IV and PO Pain medication prn pain, IV Zofran prn nausea, activity as tolerated were post op orders. Patient evaluated on POD # 1 vitals stable,afebrile, preop pain resolved, post op pain controlled, no n/v, gabrielle diet, adequate urine output. Patient was discharged home on POD # 1 in stable condition. Total Time Total Time Spent Total Time Spent (In Minutes): 20 Total Time Includes: Examination of the Patient, Discharge Planning and Medication Reconciliation Discharge Plan Discharge Items Patient Disposition: Home - Self-Care Reason For Visit: ACUTE CHOLECYSTITIS Discharge Diagnosis: same Activity: Per Instructions section Non-emergency contact: Primary Care Provider and Surgeon Call non-emergency contact if: your pain is not controlled, your pain is concerning for you, your temperature is above 101, your wound has increased redness, your wound has increased drainage and your wound pain has increased Follow-up/Referrals: Chadwick Tomlinson MD [Primary Care Provider] - Diet: Regular Addtl Attending Provider Instructions: Post-Surgical ~Discharge Instructions Activity Recommendations: - lifting limitation: (10 pounds for 2 weeks), - exercise/sex/sports limit: (nonstrenuous for 2 weeks), - driving or machine use limit: (none for 1 week), - Shower/bathe limit: (may shower beginning tomorrow) Diet: - Resume previous diet SPECIAL CARE INSTRUCTIONS: - May shower in 24 hours. Remove outer dressings. Let water run over area and pat dry. - Leave steri strips on for one week and then remove. - Call the surgeon's office with any questions or concerns - - (ex. temperature higher than 101 degrees F, excessive bleeding or pain). MEDICATIONS: - Resume previous medications unless instructed otherwise by your surgeon. - Ibuprofen 600 mg every 6 hours with food - Percocet 1 every 4 hours, as needed for pain FOLLOW UP VISIT: - If not already scheduled, please call the office to schedule a two week follow-up appointment. Office number Pending Studies at Discharge: Yes (pathology, will be reviewed at follow up visit) Stand-Alone Forms: My [facility], Work/School Release (Inpt) Medications and DC Order Prescriptions: New oxycodone-acetaminophen [Percocet] 5-325 mg Tablet 1 tab PO Q4H PRN (Reason: pain) Qty: 10 RF: 0 No Action oxcarbazepine [Trileptal] 600 mg tablet 600 mg PO BID Qty: 60 RF: 2 Discharge Orders: Discharge Order (Routine); Ordered 05/02/19 Ordered By: Michelle Tate Admission Data Admit Date/Time: 05/01/19 20:59 Attending Provider: Kushal May Admit Provider: Kushal May Primary Care Provider: Chadwick Tomlinson V. Other Providers: Kushal May Other Interventions: Discharge Summary Assessment (RN) Last Done: 05/02/19 09:57 DC Date/Time DO NOT enter until pt leaves facility: 05/02/19 11:28
== END 2019-05-02 11:28 | disposition home or self-care (01) ==
LOC: ED 15:01 → 3W 18:16 → OR 18:16

== ENCOUNTER 2021-03-03 15:51 | Inpatient (IN) ==
--- NOTE | 2021-03-03 18:59 | Emergency Department Note ---
History of Present Illness General Chief Complaint: Illness Stated Complaint: COVID +, COUGHING, LOW OXYGEN Time Seen by Provider: 03/03/21 18:57 Source: patient Mode of arrival: ambulatory Limitations: no limitations History of Present Illness Provider Complaint: shortness of breath and cough Onset (ago): day(s) (10) Severity: moderate Consistency/Duration: + intermittent Maximum Pain Intensity: 1 Relieved By: + nothing Exacerbated By: + coughing Context: + recent illness; no medication noncompliance or no smoke/fume exposure Known history of: other (Smoker last quit 3 weeks ago) Associated symptoms: + cough and + sputum production; no chest pain or no wheezing Treatment prior to arrival: none Home Medications Medication Instructions Recorded Confirmed Type atorvastatin 20 mg tablet 20 mg PO QAM 03/03/21 03/03/21 History blue-green algae (bulk) (Spirulina) 1 ea MISCELLANEOUS QAM 03/03/21 03/03/21 History metformin 500 mg tablet,extended 1,000 mg PO QAM 03/03/21 03/03/21 History release 24 hr Allergies Allergy/AdvReac Type Severity Reaction Status Date / Time No Known Allergies Allergy Verified 03/03/21 19:48 Past Med/Surg History Medical History Obesity Smoker Surgical History History of laparoscopic cholecystectomy S/P ACL surgery Right Social History Smoking Status: Never smoker Second Hand Exposure: No; Do You Dip or Chew Tobacco: No; Tobacco Cessation Education Requested by Patient: No Hx Alcohol Use: Yes Alcohol type: beer Hx Substance Use: No Preferred Language: Luxembourgish Communication Ability: Effective Credit Investigator Required: No Beliefs That Will Affect Care: None Current Living Situation: Spouse Other Information That Helps Us Care for You: No Feels Safe at Home: Yes Safety Concerns: Feels Safe At This Time Assistive Devices: Glasses Review of Systems See HPI for pertinent positives & negatives. and A total of 10 systems reviewed and were otherwise negative Physical Exam Vital Signs: Vital Signs - 24 hr 03/03/21 15:59 03/03/21 20:03 Temperature 36.7 C Temperature Source Temporal Artery Sc an Pulse Rate 103 H 90 Pulse Rhythm Regular Pulse Strength Normal Respiratory Rate 20 Respiratory Effort / Characteristics Non-Labored Respiratory Depth Normal Respiratory Patter n Regular Blood Pressure 112/75 Blood Pressure Linda n 87 Blood Pressure Pos ition Sitting Pulse Oximetry 93 93 Oxygen Delivery Me thod Room Air Room Air Sepsis Recent Feve r Within 48 Hours No Sepsis New/Unexpla ined Change in Men josé luis Status N/A Sepsis Action Take n by Nursing No Action Required Physical Exam: GENERAL: Mildly uncomfortable in appearance, coughing fit. EYE EXAM: Normal conjunctiva. PERRL, no anisocoria and EOM's grossly intact w/o pain. NECK: Supple, no nuchal rigidity, no adenopathy, non-tender. No signs of meningismus. LUNGS: Crackles bilaterally. Normal chest wall mechanics. HEART: NSR, no MRG. ABDOMEN: Abdomen soft, non-tender, normo-active bowel sounds, no masses, no rebound or guarding. BACK: No CVA TTP. SKIN: No rashes and no bruising. UPPER EXTREMITIES: Upper extremities are grossly normal. LOWER EXTREMITIES: Grossly normal, no edema. NEURO EXAM: A&O x3, cranial nerves II-XII grossly intact, normal speech, moves all 4 extremities on command w/o issue. Course Course Cardiac monitoring: An order was placed for continuous cardiac monitoring. The monitor shows a rate of 95 with sinus rhythm. Administered Medications Discontinued Medications Acetaminophen (Acetaminophen 500 Mg Tab) 1,000 mg PO NOW STA Stop: 03/03/21 19:06 Last Admin: 03/03/21 20:01 Dose: 1,000 mg Documented by: [id number] Benzonatate (Benzonatate 100 Mg Capsule) 100 mg PO NOW ONE Stop: 03/03/21 19:06 Last Admin: 03/03/21 20:02 Dose: 100 mg Documented by: [id number] Dexamethasone Sodium Phosphate (DexamethasonePf 10 Mg/Ml Vial) 6 mg IV NOW ONE Stop: 03/03/21 19:06 Last Admin: 03/03/21 20:02 Dose: 6 mg Documented by: [id number] Sodium Chloride (Nss 1000ml) 1,000 mls @ 999 mls/hr IV .Q1H1M SAMEERA Stop: 03/03/21 20:15 Last Infusion: 03/03/21 21:19 Dose: 0 mls/hr Documented by: [id number] Admin: 03/03/21 20:02 Dose: 999 mls/hr Documented by: [id number] Ketorolac Tromethamine (Ketorolac 30 Mg/Ml Vial) 30 mg IV NOW STA Stop: 03/03/21 19:06 Last Admin: 03/03/21 20:02 Dose: 30 mg Documented by: [id number] Medical Decision Making Differential Diagnosis Reactive airway disease, pneumonia, pneumothorax, COPD, CHF, infections, cardiac ischemia, pulmonary embolism, musculoskeletal, gastrointestinal, as well as other pathologies. Medical Records Attestation: I reviewed the patient's medical records. Home Medications Current Medication List: was personally reviewed by me Laboratory Data Attestation: I reviewed the patient's lab results. Result diagrams: 03/03/21 19:44 03/03/21 19:44 Lab Results 03/03/21 03/03/21 03/03/21 Range/Units 19:44 19:44 19:44 WBC 6.97 (4.8-10.8) K/uL RBC 5.00 (4.7-6.1) M/uL Hgb 16.4 (14.0-18.0) g/dL Hct 44.8 (42-52) % MCV 89.6 (80-100) fL MCH 32.8 (25-34) pg MCHC 36.6 H (32-36) g/dL RDW Std Deviation 40.5 (36.4-46.3) fL RDW Coeff of Aneudy 12.3 (11.5-14.5) % Plt Count 170 (130-400) K/uL MPV 11.3 H (7.4-10.4) fL Immature Gran % (Auto) 0.1 % Neut % (Auto) 72.7 % Lymph % (Auto) 17.4 % Bulloch % (Auto) 9.0 % Eos % (Auto) 0.7 % Baso % (Auto) 0.1 % Neut # (Auto) 5.06 (1.4-6.5) K/uL Lymph # (Auto) 1.21 (1.2-3.4) K/uL Bulloch # (Auto) 0.63 H (0.11-0.59) K/uL Eos # (Auto) 0.05 (0-0.5) K/uL Baso # (Auto) 0.01 (0-0.2) K/uL Immature Gran # (Auto) 0.01 (0.00-0.02) K/uL Sodium 133 L (136-145) mmol/L Potassium 3.6 (3.5-5.1) mmol/L Chloride 107 (98-107) mmol/L Carbon Dioxide 25 (21-32) mmol/L Anion Gap 1.0 L (3-11) BUN 16 (7-18) mg/dl Creatinine 0.92 (0.6-1.4) mg/dl Est Cr Clr Drug Dosing 97.0 ml/min Est GFR ( Amer) 110.4 ml/min Est GFR (Non-Af Amer) 95.3 ml/min BUN/Creatinine Ratio 17.1 (10-20) Glucose 126 H (70-99) mg/dl Calcium 8.9 (8.5-10.1) mg/dl Magnesium 2.0 (1.8-2.4) mg/dl Total Bilirubin 0.8 (0.2-1) mg/dl AST 30 (15-37) U/L ALT 35 (12-78) U/L Alkaline Phosphatase 55 (45-117) U/L Troponin I < 0.015 (0-0.045) ng/ml Total Protein 8.1 (6.4-8.2) gm/dl Albumin 3.7 (3.4-5.0) gm/dl Globulin 4.4 H (2.5-4.0) gm/dl Albumin/Globulin Ratio 0.8 L (0.9-2) Procalcitonin < 0.05 (0-0.5) ng/ml TSH 0.568 (0.300-4.500) uIu/ml Specimen Hemolysis COVID-19 Eval Order SARS-CoV-2 (PCR) (Negative) 03/03/21 03/03/21 Range/Units 19:44 19:44 WBC (4.8-10.8) K/uL RBC (4.7-6.1) M/uL Hgb (14.0-18.0) g/dL Hct (42-52) % MCV (80-100) fL MCH (25-34) pg MCHC (32-36) g/dL RDW Std Deviation (36.4-46.3) fL RDW Coeff of Aneudy (11.5-14.5) % Plt Count (130-400) K/uL MPV (7.4-10.4) fL Immature Gran % (Auto) % Neut % (Auto) % Lymph % (Auto) % Bulloch % (Auto) % Eos % (Auto) % Baso % (Auto) % Neut # (Auto) (1.4-6.5) K/uL Lymph # (Auto) (1.2-3.4) K/uL Bulloch # (Auto) (0.11-0.59) K/uL Eos # (Auto) (0-0.5) K/uL Baso # (Auto) (0-0.2) K/uL Immature Gran # (Auto) (0.00-0.02) K/uL Sodium (136-145) mmol/L Potassium (3.5-5.1) mmol/L Chloride (98-107) mmol/L Carbon Dioxide (21-32) mmol/L Anion Gap (3-11) BUN (7-18) mg/dl Creatinine (0.6-1.4) mg/dl Est Cr Clr Drug Dosing ml/min Est GFR ( Amer) ml/min Est GFR (Non-Af Amer) ml/min BUN/Creatinine Ratio (10-20) Glucose (70-99) mg/dl Calcium (8.5-10.1) mg/dl Magnesium (1.8-2.4) mg/dl Total Bilirubin (0.2-1) mg/dl AST (15-37) U/L ALT (12-78) U/L Alkaline Phosphatase (45-117) U/L Troponin I (0-0.045) ng/ml Total Protein (6.4-8.2) gm/dl Albumin (3.4-5.0) gm/dl Globulin (2.5-4.0) gm/dl Albumin/Globulin Ratio (0.9-2) Procalcitonin (0-0.5) ng/ml TSH (0.300-4.500) uIu/ml Specimen Hemolysis COVID-19 Eval Order Covid19 at [facility] SARS-CoV-2 (PCR) POSITIVE A* (Negative) Imaging Data Radiologist's Impression: Chest X-Ray 03/03/21 19:05 XR chest 1V portable HISTORY: Cough. weakness COMPARISON: None. FINDINGS: No pneumothorax. No pleural effusions. The cardiac silhouette is mildly enlarged. Possible 1 cm nodular density within the right upper lobe. This is likely due to the overlapping rib. No new focal lung consolidations to suggest pneumonia. No evidence for pulmonary edema. A few left basilar linear densities favor subsegmental atelectasis or scarring. Mild prominence of the thin the right hilum which could be vascular or represent underlying lymphadenopathy. IMPRESSION: Mild prominence of the right hilum which could be vascular or represent underlying lymphadenopathy. Follow-up chest CT is recommended for further evaluation. Possible 1 cm nodule within the right upper lobe which is likely due to the overlapping second rib. This should also be reassessed with follow-up chest CT. ACT 112: Positive. There are findings on this exam that require communication between the performing entity and the patient following Patient Test Result Information Act ([place] Act 112) guidelines. Electronically signed by: Lennox Xie M.D. 03/03/2021 8:57 PM ECG Data Attestation: I personally reviewed and interpreted this ECG as follows: Interpretation: Normal sinus rhythm, rate of 98, normal intervals, normal axis, T wave inversion in lead III not in contiguous leads. MDM Narrative Patient was seen due to concern for worsening hypoxia as the patient at home has been monitoring his oxygen saturation and typically ranging 80 to 90%. Patient is a former smoker but only recently quit 3 weeks ago. The patient has had symptoms for approximately 10 days recently did undergo monoclonal antibody treatment but has not had improving symptoms. Patient is a mildly productive cough but states it is not colored. Blood work was obtained and the patient treated symptomatically. Dexamethasone ordered for the at home hypoxia. Patient blood work showed a normal white count H&H and platelet count. The patient's kidney function is unremarkable. Patient's EKG does not show any signs of obvious acute ischemia. Troponin not detectable. Covid positive. Patient did have prominent right hilum. I did speak with the on-call hospitalist and the patient was admitted to the medicine service by Dr. Romero. Impression & Plan COVID-19, Acute hypoxemic respiratory failure Critical Care Time Critical Care Time: Yes Total Critical Care Time: 35 Critical Care: I have personally spent 35 minutes of critical care time in direct management of this patient. This includes bedside care, interpretation of diagnostic studies, and testing, discussion with consultants, patient, and family members, and other require inpatient management activities. This 35 minutes is in excess of all separately billable procedures. Discharge Plan Visit Data Chief Complaint: Illness Stated Complaint: COVID +, COUGHING, LOW OXYGEN ED Provider: Simon Reeves Discharge Problem: COVID-19, Acute hypoxemic respiratory failure Patient Disposition: Admitted As Inpatient Discharge Instructions Interventions: ED Discharge Assessment Last Done: 03/04/21 00:05
[2021-03-03] MEDS ORDERED: KETOROLAC 30 MG/ML VIAL IV STA (19:05)
[2021-03-03] MEDS ORDERED: dexAMETHasone**PF** 10 MG/ML VIAL IV ONE (19:05)
[2021-03-03] MEDS ORDERED: BENZONATATE 100 MG CAPSULE PO ONE (19:05)
[2021-03-03] MEDS ORDERED: ACETAMINOPHEN 500 MG TAB PO STA (19:05)
[2021-03-03] MEDS ORDERED: SODIUM CHLORIDE 0.9% 1000ML 1,000 ML IV SCH (19:15)
[2021-03-03 19:58] LABS: Basophils # (auto) 0.01 K/uL (0-0.2); Basophils % (auto) 0.1 %; Eosinophils # (auto) 0.05 K/uL (0-0.5); Eosinophils % (auto) 0.7 %; Hematocrit (blood only) 44.8 % (42-52); Hemoglobin 16.4 g/dL (14.0-18.0); Immature Granulocytes # (auto) 0.01 K/uL (0.00-0.02); Immature Granulocytes % (auto) 0.1 %; Lymphocytes # (auto) 1.21 K/uL (1.2-3.4); Lymphocytes % (auto) 17.4 %; Mean Corpuscular Hemoglobin 32.8 pg (25-34); Mean Corpuscular Hgb Conc 36.6 g/dL (32-36); Mean Corpuscular Volume 89.6 fL (80-100); Mean Platelet Volume 11.3 fL (7.4-10.4); Monocytes # (auto) 0.63 K/uL (0.11-0.59); Neutrophils # (auto) 5.06 K/uL (1.4-6.5); Neutrophils % (auto) 72.7 %; Platelet Count 170 K/uL (130-400); RDW Coefficient of Variation 12.3 % (11.5-14.5); RDW Standard Deviation 40.5 fL (36.4-46.3); White Blood Count 6.97 K/uL (4.8-10.8)
[2021-03-03 20:18] LABS: Alanine Aminotransferase 35 U/L (12-78); Albumin Level 3.7 gm/dl (3.4-5.0); Aspartate Aminotransferase 30 U/L (15-37); BUN Creatinine Ratio 17.1 (10-20); Blood Urea Nitrogen 16 mg/dl (7-18); Calcium 8.9 mg/dl (8.5-10.1); Carbon Dioxide 25 mmol/L (21-32); Chloride 107 mmol/L (98-107); Est GFR (African American) 110.4 ml/min; Est GFR (Non-African American) 95.3 ml/min; Glucose 126 mg/dl (70-99); Potassium 3.6 mmol/L (3.5-5.1); Sodium 133 mmol/L (136-145)
[2021-03-03 20:28] LABS: Albumin Globulin Ratio 0.8 (0.9-2); Alkaline Phosphatase 55 U/L (45-117); Bilirubin,Total 0.8 mg/dl (0.2-1); Globulin 4.4 gm/dl (2.5-4.0); Thyroid Stimulating Hormone 0.568 uIu/ml (0.300-4.500); Total Protein 8.1 gm/dl (6.4-8.2); Troponin I < 0.015 ng/ml (0-0.045)
--- NOTE | 2021-03-03 20:58 | XRay Report ---
XR chest 1V portable HISTORY: Cough. weakness COMPARISON: None. FINDINGS: No pneumothorax. No pleural effusions. The cardiac silhouette is mildly enlarged. Possible 1 cm nodular density within the right upper lobe. This is likely due to the overlapping rib. No new f ocal lung consolidations to suggest pneumonia. No evidence for pulmonary edema. A few left basilar li near densities favor subsegmental atelectasis or scarring. Mild prominence of the thin the right hilu m which could be vascular or represent underlying lymphadenopathy. IMPRESSION: Mild prominence of the right hilum which could be vascular or represent underlying lymphadenopathy. F ollow-up chest CT is recommended for further evaluation. Possible 1 cm nodule within the right upper lobe which is likely due to the overlapping second rib. This should also be reassessed with follow-up chest CT. ACT 112: Positive. There are findings on this exam that require communication between the performing entity and the patient following Patient Test Result Information Act ([place] Act 112) guidelines. Electronically signed by: Lennox Xie M.D. 03/03/2021 8:57 PM
--- NOTE | 2021-03-03 21:46 | History & Physical Report ---
Date of Service March 03, 2021 Assessment & Plan (1) COVID-19: Plan: Mr. Reyes is a 50 yo male who was admitted for progressive COVID 19 symptoms despite having received Tocilizumab. - severe illness category (O2 sat < 94 on room air) - SIRS criteria not met, patient not septic - check d-dimer, LDH, ferritin, CRP - no evidence of a superimposed bacterial PNA on CXR, procal not elevated. Will not start antibiotics. Given right sided hilar fullness on CXR, will order Chest CT to further characterize. - patient is outside window of Remdesirvir - Continue Dexamethasone 6mg IV daily - Albuterol HFa QID - Zinc sulfate 220mg + vitamin D 5,000 IU daily - tessalon pearls for cough prn - covid precautions (2) Type II diabetes mellitus: Plan: - hold home metformin; novolog insulin prn while inpatient - continue home atorvastatin - carb consistent diet DVT ppx: Lovenox 40mg BID (covid protocol) Diet: Carb consistent DM2 Dispo: Med/Surg Code: Full, I discussed with patient History of Present Illness Primary Care Provider: Nahun Williamson MD Mr. Reyes is a 50 yo gentleman with a known COVID 19 infection who presented at the direction of his PCPs office for worsening home oxygen saturations. Mr. Reyes first developed cold symptoms on 02/21/21. He purchased an at-home COVID 19 test kit a [employer] on 02/22/21, which gave him a positive result. He and his have been on home quarantine since that time. Of note, his (who was vaccinated against COVID-19) also suffered from an active infection and was hospitalized for 3 days last week. Mr. Reyes never received the COVID-19 vaccination. He was evaluated by his PCP on 02/27/21 who placed an order for him to have the Tocilizumab infusion, which Mr. Reyes received on 02/28/21. He states that despite the infusion, his symptoms have progressed. In particular, the dyspnea he experiences with coughing fits has become his most significant symptom. He has been checking his oxygen saturation with a home pulse oximeter - he reported O2 levels in the high 80s and low 90s today to a nurse at his PCPs office, who directed him to the ED for further evaluation. He has no history of underlying lung disease. He was a former smoker - he quit 3 weeks ago. He works as a cross country truck driver. Drinks 1-2 alcoholic beverages per week. He does have a history of type II diabetes for which he takes Metformin - his last HbA1c was 5.6 when checked in 05/2020. In the ED, he was febrile with a HR of 19, BP of 112/75, RR 20, satting 93 on RA . His CBC returned WNL. His Procal was not elevated. His Na was slightly low at 133. His kidney and liver function were WNL. His trop was undetectable. His TSH was WNL. COVID 19 positive. His EKG showed NSR. He did have poor R wave progression and a late transition (at v5). His CXR showed no evidence of a pneumothorax, no pleural effusion, no consolidation consistent with a pneumonia, no pulmonary edema; right hilar fullness was visualized, radiology recommend CT chest for further characterization. He was given 1g Tylenol, 30mg IV Toradol, Tessalon pearls, 6mg IV Dexamethasone, and 1 liter of NSS. Allergies Allergy/AdvReac Type Severity Reaction Status Date / Time No Known Allergies Allergy Verified 03/03/21 19:48 Home Medications Medication Instructions Recorded Confirmed Type atorvastatin 20 mg tablet 20 mg PO QAM 03/03/21 03/03/21 History blue-green algae (bulk) (Spirulina) 1 ea MISCELLANEOUS QAM 03/03/21 03/03/21 History metformin 500 mg tablet,extended 1,000 mg PO QAM 03/03/21 03/03/21 History release 24 hr Past Med/Surg History Medical History Obesity Smoker Surgical History History of laparoscopic cholecystectomy S/P ACL surgery Right Social History Smoking Status: Never smoker Second Hand Exposure: No; Do You Dip or Chew Tobacco: No; Tobacco Cessation Education Requested by Patient: No Hx Alcohol Use: Yes Alcohol type: beer Hx Substance Use: No Preferred Language: Ethiopian Communication Ability: Effective Manager Respiratory Care Required: No Beliefs That Will Affect Care: None Current Living Situation: Spouse Other Information That Helps Us Care for You: No Feels Safe at Home: Yes Safety Concerns: Feels Safe At This Time Assistive Devices: Oxygen - Continuous Review of Systems Ear, Nose, Mouth, Throat: + loss of taste and smell Respiratory: + cough and + dyspnea on exertion Physical Exam Constitutional: WD/WN, vitals as above cooperative and comfortable; no acute distress Eyes: + anicteric sclerae ENMT: external ear and nose normal, oropharynx normal Neck: trachea midline Respiratory: normal respiratory effort and + cough; no respiratory distress and no labored breathing Auscultation: + crackles (inspiratory, b/l lower lung harman) and + wheezes (RLL on expiration ) Cardiovascular: RRR, no murmur, no edema Heart Sounds: normal S1 and normal S2 Extremities: no pedal edema Gastrointestinal (Abdomen): normal bowel sounds, soft, nontender, no hepatosplenomegaly Musculoskeletal: Head/Neck/Chest: normocephalic and head atraumatic Skin: no rashes, warm and dry Neurologic: moves all extremities Psychiatric: A+Ox3, euthymic affect Results & Data Results & Data ([facility]) Vital Signs (Past 12 Hours) Vital Signs Temp Pulse Resp BP Pulse Ox 03/03/21 20:03 90 93 03/03/21 15:59 36.7 C 103 H 20 112/75 93 Supervising Physician Co-Signing Physician Notes Patient seen and examined, chart reviewed, case discussed with Dr. Rick and I agree with her assessment and plan as documented above. In brief, patient is a 50yo male presenting with Covid-19 infection. Symptoms developed on 02/21. Patient tested positive on 02/22. Patient is unvaccinated. He did have Tocilizumab infusion on 02/27/21. He presents today with persistent cough and dyspnea. On exam he is afebrile, HD stable, NAD HEENT - NC/AT, PERRL, MMM, Neck supple Heart - +S1/S2, regular, no m/r/g Lungs - CTA Abd - +BS, soft, NT/ND Ext - No edema Labs and images reviewed Assessment/Plan - Covid-19 infection in unvaccinated individual -Dexamethasone -Supplemental O2 -Tessalon pearls -Remainder of plan as above Resident Activity Tracking Resident Involvement: Resident Care Provided Care Provided: Adult [facility] Medicine
[2021-03-04] MEDS ORDERED: ACETAMINOPHEN 325 MG TAB PO PRN (00:18)
[2021-03-04] MEDS ORDERED: POLYETHYLENE (MIRALAX) 17 GM PACK PO PRN (00:18)
[2021-03-04] MEDS ORDERED: ONDANSETRON INJ 2 MG/ML 2 ML VIAL IV PRN (00:18)
[2021-03-04] MEDS ORDERED: GLUCOSE 40% GEL 15 GM TUBE PO PRN (00:18)
[2021-03-04] MEDS ORDERED: BENZONATATE 100 MG CAPSULE PO PRN ×2 (00:18→19:45)
[2021-03-04] MEDS ORDERED: GLUCAGON FOR INJ 1 MG VIAL SQ PRN (00:18)
[2021-03-04] MEDS ORDERED: GLUCOSE 10 TABS/TUBE PO PRN (00:18)
[2021-03-04] MEDS ORDERED: DEXTROSE 50% 50 ML SYRINGE IV PRN (00:18)
[2021-03-04] MEDS ORDERED: CARBOHYDRATES FOR HYPOGLYCEMIA PO PRN (00:18)
[2021-03-04 01:07] LABS: D Dimer < 190 ug/L FEU (0-500)
[2021-03-04 01:21] LABS: C Reactive Protein 4.02 mg/dl (0-0.29); Ferritin 541.4 ng/ml (8-388)
[2021-03-04] MEDS: ENOXAPARIN INJ 40 MG/0.4 ML SYR SQ SCH ×2 (05:53→18:28)
[2021-03-04] MEDS: ALBUTEROL HFA 8 GM INHALER INH SCH ×4 (07:23→19:12)
[2021-03-04 08:36] LABS: Basophils # (auto) 0.01 K/uL (0-0.2); Basophils % (auto) 0.3 %; Hematocrit (blood only) 42.8 % (42-52); Hemoglobin 15.7 g/dL (14.0-18.0); Immature Granulocytes # (auto) 0.01 K/uL (0.00-0.02); Immature Granulocytes % (auto) 0.3 %; Lymphocytes # (auto) 0.77 K/uL (1.2-3.4); Lymphocytes % (auto) 20.9 %; Mean Corpuscular Hemoglobin 32.5 pg (25-34); Mean Corpuscular Hgb Conc 36.7 g/dL (32-36); Mean Corpuscular Volume 88.6 fL (80-100); Mean Platelet Volume 11.4 fL (7.4-10.4); Monocytes # (auto) 0.27 K/uL (0.11-0.59); Monocytes % (auto) 7.3 %; Neutrophils # (auto) 2.62 K/uL (1.4-6.5); Neutrophils % (auto) 71.2 %; Platelet Count 169 K/uL (130-400); RDW Coefficient of Variation 12.1 % (11.5-14.5); RDW Standard Deviation 39.2 fL (36.4-46.3); Red Blood Count 4.83 M/uL (4.7-6.1); White Blood Count 3.68 K/uL (4.8-10.8)
--- NOTE | 2021-03-04 08:54 | Hospitalist Progress Note ---
Date of Service March 04, 2021 Assessment & Plan (1) COVID-19: Plan: Mr. Reyes is a 50 yo male who was admitted for progressive COVID 19 symptoms despite having received Casirivimab 600 mg/ Imdevimab - severe illness category (O2 sat < 94 on room air) - SIRS criteria not met, patient not septic - check d-dimer, LDH, ferritin, CRP - no evidence of a superimposed bacterial PNA on CXR, procal not elevated. Will not start antibiotics. Given right sided hilar fullness on CXR, will order Chest CT to further characterize. - patient is outside window of Remdesirvir - Continue Dexamethasone 6mg IV daily - Albuterol HFa QID - Zinc sulfate 220mg + vitamin D 5,000 IU daily - tessalon pearls for cough prn adding Robitussin-DAC also - covid precautions (2) Type II diabetes mellitus: Plan: - hold home metformin; novolog insulin prn while inpatient - continue home atorvastatin - carb consistent diet DVT ppx: Lovenox 40mg BID (covid protocol) Diet: Carb consistent DM2 Dispo: Med/Surg Code: Full, I discussed with patient Admission and Anticipated Discharge Date Admission Date: March 03, 2021 Subjective Patient is significant nonproductive cough and occasional hypoxemia while moving about the room and talking Review of Systems Review of Systems: Mild distress and fatigue no headache, no visual changes no speech or swallowing issues no chest pain, pressure or palpitations Dyspnea on exertion nonproductive coughing no abdominal pain, nausea or vomiting, diarrhea or constipation no dysuria, hematuria or frequency no focal joint pain or swelling no back pain, CVA tenderness or radicular pain no bruising, bleeding or rashes no focal signs of weakness or numbness or altered sensation no complaints of anxiety or depression.. Physical Exam Physical Exam: The patient appeared well nourished and normally developed. Vital signs as documented. Head exam is normocephalic atraumatic Neck is without JVD, thyromegaly, or carotid bruits. Lungs are coarse in all lung harman but no focal loss of breath sounds Cardiac exam, Rhythm is regular.. No murmurs, rubs or gallops. Abdominal exam reveals normal bowel sounds, soft non tender, no masses Extremities are nonedematous and both pedal pulses are present Neurologic exam is alert and oriented, no focal loss of strength or sensation Skin is without bruises or rashes Psychologically is without concerns for anxiety or depression Results & Data Results & Data ([facility]) Vital Signs (Past 12 Hours) Vital Signs Temp Pulse Pulse Resp BP BP Pulse Ox 03/04/21 07:24 82 20 91 03/04/21 00:15 97.3 F L 74 14 122/82 94 03/04/21 00:05 77 119/90 91 03/03/21 23:31 74 119/90 91 Pulse Ox 03/04/21 07:24 03/04/21 00:15 93 03/04/21 00:05 03/03/21 23:31 PG Care Time/CCT Total # of Minutes Spent Total Time Spent with Patient: Total time spent is greater than 50% in coordination of care (as documented) at patient's floor/unit and/or counseling patient: Coding Level of Care Code 15315 Subseq Hosp Care Lvl 2 Diagnoses COVID-19 U07.1 Type II diabetes mellitus E11.9
[2021-03-04 09:04] LABS: BUN Creatinine Ratio 23.4 (10-20); Calcium 8.6 mg/dl (8.5-10.1); Est GFR (African American) 116.1 ml/min; Est GFR (Non-African American) 100.2 ml/min
[2021-03-04] MEDS: INSULIN ASPART 100 UNITS/ML 3 ML PEN SC SCH ×4 (09:08→20:16)
[2021-03-04] MEDS: dexAMETHasone 6 MG in SYRINGE 0 ML IV SCH (09:11)
[2021-03-04] MEDS: ATORVASTATIN 20 MG TAB PO SCH (09:14)
[2021-03-04] MEDS: CHOLECALCIFEROL 1,000 UNITS 25 MCG TAB PO SCH (09:15)
[2021-03-04] MEDS: ZINC SULFATE 220 MG CAPSULE PO SCH (09:16)
--- NOTE | 2021-03-04 09:45 | CT Scan Report ---
CT chest diagnostic wo con CT DOSE: 606.53 mGy.cm CLINICAL HISTORY: 50 years-old Male with follow up on xR. Acute cough TECHNIQUE: Multiaxial CT images of the chest were performed without contrast. A dose lowering techni que was utilized adhering to the principles of ALARA. COMPARISON: Chest radiograph 03/03/2021, CT abdomen and pelvis 05/01/2019. FINDINGS: No discrete thyroid nodule identified. There are a few prominent mediastinal and hilar lymp h nodes measuring up to 9 mm, likely reactive. The heart is upper limits of normal in size. Moderate coronary artery calcifications. No thoracic aortic aneurysm. Aberrant retroesophageal course of the r ight subclavian artery. Trace pleural effusions. No pneumothorax or overt pulmonary edema. Patchy mul tifocal subpleural predominant groundglass opacities are noted within a multilobar bilateral distribu tion. There are no suspicious pulmonary nodules or masses. The central airways are patent. No pneumoperitoneum. Cholecystectomy. Partially imaged nodular foci involve the superior poles of the kidneys, better characterized on comparison CT abdomen and pelvis. Hepatic steatosis. Unremarkable s oft tissues. There is no acute fracture. IMPRESSION: 1. Patchy bilateral subpleural predominant multilobar distribution of groundglass opacities are sugge stive of viral pneumonia. 2. Prominent nonenlarged mediastinal and hilar lymph nodes are likely reactive. No mediastinal mass. 3. Aberrant right subclavian artery. 4. Hepatic steatosis. ACT 112: Negative or not required by law. Electronically signed by: Farhat Farah M.D. 03/04/2021 9:43 AM
--- NOTE | 2021-03-04 15:20 | Electrocardiogram Report ---
Test Reason : Blood Pressure : / mmHG Vent. Rate : 098 BPM Atrial Rate : 098 BPM P-R Int : 136 ms QRS Dur : 074 ms QT Int : 330 ms P-R-T Axes : 005 026 004 degrees QTc Int : 421 ms Normal sinus rhythm Nonspecific ST abnormality When compared with ECG of 01-MAY-2019 18:22, No significant change was found Confirmed by Andrew Ricardo ([id number]) on 03/04/2021 3:19:47 PM Referred By: REFERRED SELF Confirmed By:Anthony Ricardo
--- NOTE | 2021-03-04 23:50 | Billing Data ---
Date of Service March 03, 2021 Coding Level of Care Code INT OBSERVATION CARE 50M LVL 2
[2021-03-05] MEDS: ENOXAPARIN INJ 40 MG/0.4 ML SYR SQ SCH ×2 (05:07→18:36)
[2021-03-05] MEDS: ALBUTEROL HFA 8 GM INHALER INH SCH (07:26)
[2021-03-05] MEDS ORDERED: ALBUTEROL HFA 8 GM INHALER INH PRN (08:18)
[2021-03-05] MEDS: ZINC SULFATE 220 MG CAPSULE PO SCH (08:53)
[2021-03-05] MEDS: CHOLECALCIFEROL 1,000 UNITS 25 MCG TAB PO SCH (08:53)
[2021-03-05] MEDS: ATORVASTATIN 20 MG TAB PO SCH (08:53)
[2021-03-05] MEDS: dexAMETHasone 6 MG in SYRINGE 0 ML IV SCH (08:53)
[2021-03-05] MEDS: INSULIN ASPART 100 UNITS/ML 3 ML PEN SC SCH ×4 (09:09→20:54)
[2021-03-05] MEDS ORDERED: PHARMACY GLYCEMIC MGMT CONSULT PRN (09:44)
--- NOTE | 2021-03-05 09:59 | Pharmacy Report ---
Pharmacy Glycemic Short Note 2 - Date of Service March 05, 2021 - Glycemic Short BSG Results (Last 24 hours): 03/04/21 03/04/21 03/04/21 12:55 17:56 19:59 POC Glucose 230 H 192 H 245 H 03/05/21 08:03 POC Glucose 174 H OUTPATIENT ANTIDIABETIC REGIMEN: * metformin 1000 mg PO qAM * A1c pending ASSESSMENT: * Eric is a 50 yo T2DM admitted for worsening COVID-19 infection despite administration of monoclonal antibody with hyperglycemia likely due to dexamethasone IV. Patient received 26 units of bolus insulin yesterday with all BSGs above goal. No basal insulin. * Fasting BSG of 174 mg/dL this am. * Will likely need to add small dose of long acting basal insulin. I will hold off for now since fasting improved compared to 03/04. * Post prandial BSG elevation * Will start once daily weight based NPH for coverage of steroid induced hyperglycemia PLAN FOR INPATIENT GLYCEMIC CONTROL: * Hold outpatient oral diabetes medications * Basal insulin * Add NPH 35 units SQ daily - given with dexamethasone IV * Bolus insulin * NovoLog per scale ACHS or Q6hrs while NPO * Goal Range: Low 100 mg/dL - High 140 mg/dL * Correction Factor: 20 mg/dL/unit * Nutritional / Prandial insulin per carb ratio of 1 unit per 6 grams CHO consumed PLAN FOR DISCHARGE: * pending A1c
[2021-03-05] MEDS ORDERED: INSULIN HUMAN NPH SC SCH (10:00)
--- NOTE | 2021-03-05 17:45 | Hospitalist Progress Note ---
Date of Service March 05, 2021 Assessment & Plan (1) COVID-19: Plan: Mr. Reyes is a 50 yo male who was admitted for progressive COVID 19 symptoms despite having received Casirivimab 600 mg/ Imdevimab as an outpt thru an ER visit 02/28 - severe illness category (O2 sat < 94 on room air) - SIRS criteria not met, patient not septic -elevated inflamatory markers - no evidence of a superimposed bacterial PNA on CXR, procal not elevated. did not start antibiotics. Chest CT03/03 IMPRESSION: 1. Patchy bilateral subpleural predominant multilobar distribution of groundglass opacities are suggestive of viral pneumonia. 2. Prominent nonenlarged mediastinal and hilar lymph nodes are likely reactive. No mediastinal mass. 3. Aberrant right subclavian artery. 4. Hepatic steatosis - patient is outside window of Remdesirvir - Continue Dexamethasone 6mg daily likley 10 days - Zinc sulfate 220mg + vitamin D 5,000 IU daily - tessalon pearls for cough prn - covid precautions (2) Type II diabetes mellitus: Plan: - hold home metformin; novolog insulin prn while inpatient - continue home atorvastatin - carb consistent diet DVT ppx: Lovenox 40mg BID (covid protocol) Diet: Carb consistent DM2 Dispo: Med/Surg Code: Full, I discussed with patient Admission and Anticipated Discharge Date Admission Date: March 03, 2021 Subjective Patient continues with significant nonproductive cough and occasional hypoxemia while moving about the room and talking, he is not with severe respiratory distress at rest but has challenges moving about his room Review of Systems Review of Systems: Mild distress and fatigue no headache, no visual changes no speech or swallowing issues no chest pain, pressure or palpitations continues with Dyspnea on exertion nonproductive coughing no abdominal pain, nausea or vomiting, diarrhea or constipation no dysuria, hematuria or frequency no focal joint pain or swelling no back pain, CVA tenderness or radicular pain no bruising, bleeding or rashes no focal signs of weakness or numbness or altered sensation no complaints of anxiety or depression.. Physical Exam Physical Exam: The patient appeared well nourished and normally developed. Vital signs as documented. Head exam is normocephalic atraumatic Neck is without JVD, thyromegaly, or carotid bruits. Lungs are coarse in all lung harman but no focal loss of breath sounds Cardiac exam, Rhythm is regular.. No murmurs, rubs or gallops. Abdominal exam reveals normal bowel sounds, soft non tender, no masses Extremities are nonedematous and both pedal pulses are present Neurologic exam is alert and oriented, no focal loss of strength or sensation Skin is without bruises or rashes Psychologically is without concerns for anxiety or depression Results & Data Results & Data ([facility]) Vital Signs (Past 12 Hours) Vital Signs Temp Pulse Resp BP Pulse Ox 03/05/21 11:13 135/77 03/05/21 08:01 97.3 F L 66 16 100/61 94 03/05/21 07:27 65 17 97 PG Care Time/CCT Total # of Minutes Spent Total Time Spent with Patient: Total time spent is greater than 50% in coordination of care (as documented) at patient's floor/unit and/or counseling patient: Coding Level of Care Code 56277 Subseq Hosp Care Lvl 2 Diagnoses COVID-19 U07.1 Type II diabetes mellitus E11.9
[2021-03-06] MEDS ORDERED: INSULIN ASPART 100 UNITS/ML 3 ML PEN SC SCH
[2021-03-06] MEDS: ENOXAPARIN INJ 40 MG/0.4 ML SYR SQ SCH (05:28)
[2021-03-06] MEDS ORDERED: INSULIN HUMAN NPH SC SCH (09:00)
[2021-03-06] MEDS: INSULIN ASPART 100 UNITS/ML 3 ML PEN SC SCH (09:10)
[2021-03-06] MEDS: dexAMETHasone 6 MG in SYRINGE 0 ML IV SCH (09:17)
[2021-03-06] MEDS: ZINC SULFATE 220 MG CAPSULE PO SCH (09:17)
[2021-03-06] MEDS: CHOLECALCIFEROL 1,000 UNITS 25 MCG TAB PO SCH (09:18)
[2021-03-06] MEDS: ATORVASTATIN 20 MG TAB PO SCH (09:18)
[2021-03-06 09:59] LABS: Estimated Average Glucose 154 mg/dl
--- NOTE | 2021-03-06 14:22 | Discharge Summary ---
Date of Service March 06, 2021 Admission HPI Per Admitting Provider Mr. Reyes is a 50 yo gentleman with a known COVID 19 infection who presented at the direction of his PCPs office for worsening home oxygen saturations. Mr. Reyes first developed cold symptoms on 02/21/21. He purchased an at-home COVID 19 test kit a [employer] on 02/22/21, which gave him a positive result. He and his have been on home quarantine since that time. Of note, his (who was vaccinated against COVID-19) also suffered from an active infection and was hospitalized for 3 days last week. Mr. Reyes never received the COVID-19 vaccination. He was evaluated by his PCP on 02/27/21 who placed an order for him to have the Tocilizumab infusion, which Mr. Reyes received on 02/28/21. He states that despite the infusion, his symptoms have progressed. In particular, the dyspnea he experiences with coughing fits has become his most significant symptom. He has been checking his oxygen saturation with a home pulse oximeter - he reported O2 levels in the high 80s and low 90s today to a nurse at his PCPs office, who directed him to the ED for further evaluation. He has no history of underlying lung disease. He was a former smoker - he quit 3 weeks ago. He works as a truckload owner operator. Drinks 1-2 alcoholic beverages per week. He does have a history of type II diabetes for which he takes Metformin - his last HbA1c was 5.6 when checked in 05/2020. In the ED, he was febrile with a HR of 19, BP of 112/75, RR 20, satting 93 on RA. His CBC returned WNL. His Procal was not elevated. His Na was slightly low at 133. His kidney and liver function were WNL. His trop was undetectable. His TSH was WNL. COVID 19 positive. His EKG showed NSR. He did have poor R wave progression and a late transition (at v5). His CXR showed no evidence of a pneumothorax, no pleural effusion, no consolidation consistent with a pneumonia, no pulmonary edema; right hilar fullness was visualized, radiology recommend CT chest for further characterization. He was given 1g Tylenol, 30mg IV Toradol, Tessalon pearls, 6mg IV Dexamethasone, and 1 liter of NSS. Principal Diagnosis sars cov 2 pneumonia Discharge Exam The patient appeared well Vital signs as documented. Breathing is unlabored there is still a nonproductive cough Extremities are nonedematous and both pedal pulses are normal. Neurologic exam is alert and oriented, no focal loss of strength or sensation Skin is without bruises or rashes Psychologically is without concerns for anxiety or depression. Discharge Data Allergies Allergy/AdvReac Type Severity Reaction Status Date / Time No Known Allergies Allergy Verified 03/03/21 19:48 Consultations 03/03/21 21:08 ED Decision to Admit Stat Ordered Studies 03/03/21 21:44 CT chest diagnostic wo con Routine Hospital Course (1) COVID-19: Mr. Reyes is a 50 yo male who was admitted for progressive COVID 19 symptoms despite having received Casirivimab 600 mg/ Imdevimab as an outpt thru an ER visit 02/28 - severe illness category (O2 sat < 94 on room air) - SIRS criteria not met, patient not septic -elevated inflamatory markers - no evidence of a superimposed bacterial PNA on CXR, procal not elevated. did not start antibiotics. Chest CT03/03 IMPRESSION: 1. Patchy bilateral subpleural predominant multilobar distribution of groundglass opacities are suggestive of viral pneumonia. 2. Prominent nonenlarged mediastinal and hilar lymph nodes are likely reactive. No mediastinal mass. 3. Aberrant right subclavian artery. 4. Hepatic steatosis - patient was outside window of Remdesirvir - Continue Dexamethasone 6mg p.o. as an outpatient to complete his 10-day course -Patient encouraged to use an [id number]-[id number] cough medicine - covid precautions were given the patient at time of discharge (2) Type II diabetes mellitus: Resume home metformin; make good choices with dietary discretion while on steroids - continue home atorvastatin - carb consistent diet Total Time Total Time Spent Total Time Spent (In Minutes): It required greater than 30 minutes to prepare this patient for discharge Discharge Plan Discharge Items Patient Disposition: Home - Self-Care Reason For Visit: COVID Discharge Diagnosis: Covid pneumonia Activity: Per Instructions section Activity Comment: gradually increase activtiy, home isolation for 11 days from symptoms Non-emergency contact: Primary Care Provider Call non-emergency contact if: you have any medication questions, your symptoms worsen and you have a fever Follow-up/Referrals: Nahun Williamson MD [Primary Care Provider] - 03/10/21 10:40 am ([facility]) Diet: Carb Consistent or DM2 Addtl Attending Provider Instructions: Home Isolation COVID-19 Instructions, 11 days from first symptoms is actually lapsed but I would recommend home isolation until your cough abates and symptoms are resolved for 48 hours The following information about Home Isolation is from the CDC Website: https://www.cdc.gov/coronavirus/2019-ncov/hcp/riachvds-saavujf-scmldt.html Stay home except to get medical care People who are mildly ill with COVID-19 are able to isolate at home during their illness. You should restrict activities outside your home, except for getting medical care. Do not go to work, school, or public areas. Avoid using public transportation, ride-sharing, or taxis. Separate yourself from other people and animals in your home People: As much as possible, you should stay in a specific room and away from o ther people in your home. Also, you should use a separate bathroom, if available. Animals: You should restrict contact with pets and other animals while you are sick with COVID-19, just like you would around other people. Although there have not been reports of pets or other animals becoming sick with COVID-19, it is still recommended that people sick with COVID-19 limit contact with animals until more information is known about the virus. When possible, have another member of your household care for your animals while you are sick. If you are sick with COVID-19, avoid contact with your pet, including petting, snuggling, being kissed or licked, and sharing food. If you must care for your pet or be around animals while you are sick, wash your hands before and after you interact with pets and wear a face mask. Call ahead before visiting your doctor If you have a medical appointment, call the healthcare provider and tell them that you have or may have COVID-19. This will help the healthcare providers office take steps to keep other people from getting infected or exposed. Wear a face mask You should wear a face mask when you are around other people (e.g., sharing a room or vehicle) or pets and before you enter a healthcare providers office. If you are not able to wear a face mask (for example, because it causes trouble breathing), then people who live with you should not stay in the same room with you, or they should wear a face mask if they enter your room. Cover your coughs and sneezes Cover your mouth and nose with a tissue when you cough or sneeze. Throw used tissues in a lined trash can. Immediately wash your hands with soap and water for at least 20 seconds or, if soap and water are not available, clean your hands with an alcohol-based hand elementary school teacher's aide that contains at least 60% alcohol. Clean your hands often Wash your hands often with soap and water for at least 20 seconds, especially after blowing your nose, coughing, or sneezing; going to the bathroom; and before eating or preparing food. If soap and water are not readily available, use an alcohol-based hand elementary school teacher's aide with at least 60% alcohol, covering all surfaces of your hands and rubbing them together until they feel dry. Soap and water are the best option if hands are visibly dirty. Avoid touching your eyes, nose, and mouth with unwashed hands. Avoid sharing personal household items You should not share dishes, drinking glasses, cups, eating utensils, towels, or bedding with other people or pets in your home. After using these items, they should be washed thoroughly with soap and water. Clean all high-touch surfaces everyday High touch surfaces include counters, tabletops, doorknobs, bathroom fixtures, toilets, phones, keyboards, tablets, and bedside tables. Also, clean any surfaces that may have blood, stool, or body fluids on them. Use a household cleaning spray or wipe, according to the label instructions. Labels contain instructions for safe and effective use of the cleaning product including pr ecautions you should take when applying the product, such as wearing gloves and making sure you have good ventilation during use of the product. Monitor your symptoms Seek prompt medical attention if your illness is worsening (e.g., difficulty breathing).Beforeseeking care, call your healthcare provider and tell them that you have, or are being evaluated for, COVID-19. Put on a face mask before you enter the facility. These steps will help the healthcare providers office to keep other people in the office or waiting room from getting infected or exposed. Ask your healthcare provider to call the local or state health department. Persons who are placed under active monitoring or facilitated self- monitoring should follow instructions provided by their local health department or occupational health professionals, as appropriate. When working with your local health department check their available hours. If you have a medical emergency and need to call 911, notify the dispatch personnel that you have, or are being evaluated for COVID-19. If possible, put on a face mask before emergency medical services arrive. Discontinuing home isolation Patients with confirmed COVID-19 should remain under home isolation precautions until the risk of secondary transmission to others is thought to be low. The decision to discontinue home isolation precautions should be made on a [id number]-pf-[id number] basis, in consultation with healthcare providers and state and local health departments. Pending Studies at Discharge: No Stand-Alone Forms: My [facility] [employer] Work/School Release, Smoking Cessation Medications and DC Order Prescriptions: New dexamethasone [Decadron] 6 mg tablet 6 mg PO DAILY Qty: 7 RF: 0 Continued atorvastatin 20 mg tablet 20 mg PO QAM RF: 0 metformin 500 mg tablet extended release 24 hr 1,000 mg PO QAM RF: 0 Spirulina Powder 1 ea MISCELLANEOUS QAM RF: 0 Discharge Orders: Discharge Order (Routine); Ordered 03/06/21 Ordered By: Clem Gordon Admission Data Admit Date/Time: 03/05/21 17:45 Attending Provider: Clem Gordon Admit Provider: Clem Gordon Primary Care Provider: Nahun Williamson Other Providers: Meghann Romero Other Interventions: Discharge Summary Assessment (RN) Last Done: 03/06/21 10:17 Coding Level of Care Code D/C DAY MANAGEMENT >30 MINS Diagnoses COVID-19 U07.1 Type II diabetes mellitus E11.9
== END 2021-03-06 11:19 | disposition home or self-care (01) | DRG 177 ==
LOC: 3N 15:51 → ED 15:51 → SUATTDRO 21:40 → 3N 03-04 00:05

== ENCOUNTER 2022-03-02 11:22 | Observation (INO) ==
[2022-03-02] MEDS ORDERED: SODIUM CHLORIDE 0.9% 1000ML 1,000 ML IV ONE (11:30)
--- NOTE | 2022-03-02 11:33 | Emergency Department Note ---
Impression & Plan Acute hyperglycemia, Paresthesia of left arm ED Provider Note Name: TISHA PAULINO Age: 51 Sex: M Arrives Via: Ambulance Informant: Patient ED Provider: Mitch Andersen MD Chief Complaint: High blood sugar Impression: As per impressions above Medical Decision Makin-year-old gentleman sent over by the clinic for evaluation of hyperglycemia and left arm paresthesias. Patient awoke with inability to feel left arm properly that does not have any specific weakness in that or other elsewhere. NIH is essentially a 0 on evaluation and given ongoing since he awoke I do not feel that he would be a thrombolytic candidate. Vitals unremarkable on arrival and he is neuro intact. Patient does have a blood sugar of almost 500. He was given IV fluids and some IV insulin. In the setting of type 2 diabetes that is uncontrolled, hyperlipidemia and new onset neurologic issues I do feel that he would benefit from evaluation for a TIA. He was given aspirin 324 mg p.o. with a negative CT head. I discussed the case with the hospitalist who will evaluate him further. Prior Medical Record and Triage/Nursing Notes reviewed by Me Additional history obtained from EMS Differentials:Infection, dehydration, metabolic abnormality, hypo/hyperglycemia, electrolyte disturbance, anemia, hypoxia, cardiac sources, intracerebral event, toxicologic, neurologic, as well as other pathologies. Vital Signs: reviewed and remarkable for no significant abnormalities Interventions: Normal saline bolus 1 L IV, insulin 10 units IV, aspirin 324 mg p.o. Labs:Reviewed and remarkable for hyperglycemia Imaging:CT of the head without contrast no acute findings as per radiologist EKG:Per My Interpretation: Indication hyperglycemia: NSR 80 bpm, qtc 419. No Ectopy. No Ischemia. Compared to EKG 03/03/21, no significant changes. Consults:Dr Meghana REVELES Hospitalist Plan: Disposition: Hospitalization Condition: Good History of Present Illness:51-year-old male arrives for evaluation of hyperglycemia. Patient notes his blood sugar has been greater than 600 for the last few days. Associated with 1 day of left arm paresthesias. Notes he cannot feel his left arm properly but can use it properly. He also notes a week and a half of some left leg sciatica. This is not new for him. He notes pain radiates from his low left back into his left leg. He was seen by a chiropractor earlier today. He denies any recent falls, trauma, injuries. 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 He is supposed to be on metformin but he has not been taking it. He denies any fevers, chills, headache, visual changes, chest pain, shortness of breath, abdominal pain, nausea, vomiting, urinary/bowel symptoms or any other signs or symptoms. No medications prior to arrival. EMS notes a blood sugar of 590. Nothing makes better or worse. ROS: See above HPI for pertinent positives & negatives. A total of 10 systems reviewed and were otherwise negative. Past Medical History:See Below Past Surgical History:See Below Family History:See Below Social History:See Below Home Medications:See Below Allergies:See Below Vitals:Blood Pressure: 118/78, Pulse 72, RR 18, T 36.8 C, O2 95% on RA Physical Exam: GENERAL: Patient is dehydrated appearing and in minimal distress. EYES: No scleral icterus, unremarkable pupils. ENT: Mucous membranes dry, no nasal congestion. NECK: No masses appreciated, nomeningismus, trachea is midline. RESPIRATORY: No dyspnea. Clear to auscultation and equal bilaterally. No wheeze, no rhonchi. CARDIOVASCULAR: Regular rate and rhythm.No murmurs, rubs, gallops appreciated. GASTROINTESTINAL: Abdomen soft, non-tender, no peritonitis.Bowel sounds positive.No masses appreciated. BACK: No midline tenderness, no CVA tenderness EXTREMITIES: Normal motion all extremities, no cyanosis, no edema. NEUROLOGIC: Alert and oriented, no acute motor or sensory deficits, no focal weakness, cranial nerves grossly intact. SKIN: No rash, no jaundice, no diaphoresis. PSYCH: Appropriate GCS: 15 ED Course: Times/Reassessments: Multiple repeat evaluations he does appear to be feeling better with some fluids and insulin. He is agreeable to hospitalization for further evaluation of the symptoms he had been having. Mitch Andersen MD Past Med/Surg History Medical History Obesity Smoker Surgical History History of laparoscopic cholecystectomy S/P ACL surgery Right Social History Smoking Status: Light tobacco smoker Second Hand Exposure: No; Do You Dip or Chew Tobacco: No; Tobacco Cessation Education Requested by Patient: No Hx Alcohol Use: Yes Alcohol type: beer and hard liquor Hx Substance Use: Yes Preferred Language: Citizen Of [place] Communication Ability: Effective Cable Ferry Operator Required: No Beliefs That Will Affect Care: None Current Living Situation: Spouse Other Information That Helps Us Care for You: No Feels Safe at Home: Yes Safety Concerns: Feels Safe At This Time Assistive Devices: Glasses Allergies Allergies Allergy/AdvReac Type Severity Reaction Status Date / Time No Known Allergies Allergy Verified 03/03/21 19:48 Home Meds Home Medications Medication Instructions Recorded Confirmed atorvastatin 20 mg tablet 20 mg PO QAM 03/03/21 03/03/21 blue-green algae (bulk) (Spirulina 1 ea miscellaneous QAM 03/03/21 03/03/21 powder) metformin 500 mg tablet,extended 1,000 mg PO QAM 03/03/21 03/03/21 release 24 hr Previous Rx's Medication Instructions Recorded codeine 10 mg-guaifenesin 100 mg/5 10 ml PO Q6H PRN cough #237 mL 03/06/21 mL oral liquid dexamethasone 6 mg tablet 6 mg PO DAILY #7 tabs 03/06/21 (Decadron) Results & Data (ED) Vital Signs Vital Signs - 24 hr 03/02/22 11:36 03/02/22 13:27 Temperature 36.6 C Temperature Source Oral Pulse Rate 83 Pulse Rate [Apical] 82 Respiratory Rate 19 19 Respiratory Effort / Characteristics Non-Labored Spontaneous Non-Labored Spontaneous Respiratory Depth Normal Normal Blood Pressure 131/88 Blood Pressure [Right Arm] 143/93 H Blood Pressure Mean 102 Blood Pressure Mean [Right Arm] 109 Pulse Oximetry 93 96 Oxygen Delivery Method Room Air Room Air Sepsis Recent Fever Within 48 Hours No Sepsis New/Unexplained Change in Mental Status No Sepsis Action Taken by Nursing No Action Required Laboratory Data Result diagrams: 03/02/22 11:29 03/02/22 13:59 Lab Results 03/02/22 03/02/22 03/02/22 Range/Units 11:29 11:29 11:29 WBC 7.57 (4.8-10.8) K/ul RBC 5.02 (4.63-6.08) M/uL Hgb 15.9 (14.0-18.0) g/dl Hct 44.3 (40.1-51.0) % MCV 88.2 (80.0-100.0) fL MCH 31.7 (25.0-34.0) pg MCHC 35.9 (32.0-36.0) g/dL RDW Std Deviation 38.8 (36.4-46.3) fL RDW Coeff of Aneudy 12.2 (11.5-14.5) % Plt Count 158 (130-400) K/uL MPV 11.5 (9.4-12.4) fL Immature Gran % (Auto) 0.4 % Neut % (Auto) 56.9 % Lymph % (Auto) 32.2 % Crane % (Auto) 7.7 % Eos % (Auto) 2.1 % Baso % (Auto) 0.7 % Neut # (Auto) 4.31 (1.4-6.5) K/uL Lymph # (Auto) 2.44 (1.2-3.4) K/uL Crane # (Auto) 0.58 (0.24-0.82) K/uL Eos # (Auto) 0.16 (0-0.50) K/uL Baso # (Auto) 0.05 (0-0.2) K/uL Immature Gran # (Auto) 0.03 H (0.00-0.02) K/uL PT 10.4 (9.0-12.0) Seconds INR 1.0 (0.9-1.1) VBG pH (7.36-7.41) VBG pCO2 (38-50) mmHg VBG pO2 mmHg VBG HCO3 mmol/L VBG O2 Saturation % VBG Base Excess mEq/L Sodium 132 L (136-145) mmol/L Potassium TNP Chloride 100 (98-107) mmol/L Carbon Dioxide 25 (21-32) mmol/L Anion Gap 7 (3-11) BUN 28 H (6-23) mg/dl Creatinine 1.15 (0.6-1.4) mg/dl Est Cr Clr Drug Dosing 89.7 ml/min Est GFR ( Amer) 83.7 ml/min Est GFR (Non-Af Amer) 72.3 ml/min BUN/Creatinine Ratio 24.3 H (10-20) Glucose 455 H* (70-99(Fasting)) mg/dl POC Glucose (70-99) mg/dl Calcium 9.4 (8.5-10.1) mg/dl Magnesium 2.1 (1.7-2.4) mg/dl Total Bilirubin 0.7 (0.2-1.0) mg/dl Direct Bilirubin TNP AST TNP ALT 27 (7-52) U/L Alkaline Phosphatase 79 (34-104) U/L Troponin I High Sens 6.5 (0-20) pg/ml Total Protein 7.4 (6.0-8.3) gm/dl Albumin 4.3 (3.4-5.0) gm/dl Urine Color Urine Appearance (Clear) Urine pH (4.5-7.5) Ur Specific [place] (1.000-1.030) Urine Protein (Negative) Urine Glucose (UA) (Negative) Urine Ketones (Negative) Urine Blood (Negative) Urine Nitrite (Negative) Urine Bilirubin (Negative) Urine Urobilinogen (Negative) Ur Leukocyte Esterase (Negative) SARS-CoV-2, RNA, NAAT (NEGATIVE) 03/02/22 03/02/22 03/02/22 Range/Units 11:36 11:37 12:33 WBC (4.8-10.8) K/ul RBC (4.63-6.08) M/uL Hgb (14.0-18.0) g/dl Hct (40.1-51.0) % MCV (80.0-100.0) fL MCH (25.0-34.0) pg MCHC (32.0-36.0) g/dL RDW Std Deviation (36.4-46.3) fL RDW Coeff of Aneudy (11.5-14.5) % Plt Count (130-400) K/uL MPV (9.4-12.4) fL Immature Gran % (Auto) % Neut % (Auto) % Lymph % (Auto) % Crane % (Auto) % Eos % (Auto) % Baso % (Auto) % Neut # (Auto) (1.4-6.5) K/uL Lymph # (Auto) (1.2-3.4) K/uL Crane # (Auto) (0.24-0.82) K/uL Eos # (Auto) (0-0.50) K/uL Baso # (Auto) (0-0.2) K/uL Immature Gran # (Auto) (0.00-0.02) K/uL PT (9.0-12.0) Seconds INR (0.9-1.1) VBG pH 7.39 (7.36-7.41) VBG pCO2 41 (38-50) mmHg VBG pO2 71 mmHg VBG HCO3 25 mmol/L VBG O2 Saturation 95.6 % VBG Base Excess -0.2 mEq/L Sodium (136-145) mmol/L Potassium Chloride (98-107) mmol/L Carbon Dioxide (21-32) mmol/L Anion Gap (3-11) BUN (6-23) mg/dl Creatinine (0.6-1.4) mg/dl Est Cr Clr Drug Dosing ml/min Est GFR ( Amer) ml/min Est GFR (Non-Af Amer) ml/min BUN/Creatinine Ratio (10-20) Glucose (70-99(Fasting)) mg/dl POC Glucose 344 H* (70-99) mg/dl Calcium (8.5-10.1) mg/dl Magnesium (1.7-2.4) mg/dl Total Bilirubin (0.2-1.0) mg/dl Direct Bilirubin AST ALT (7-52) U/L Alkaline Phosphatase (34-104) U/L Troponin I High Sens (0-20) pg/ml Total Protein (6.0-8.3) gm/dl Albumin (3.4-5.0) gm/dl Urine Color Yellow Urine Appearance Clear (Clear) Urine pH 5.0 (4.5-7.5) Ur Specific [place] 1.038 H (1.000-1.030) Urine Protein Negative (Negative) Urine Glucose (UA) 3+ H (Negative) Urine Ketones Negative (Negative) Urine Blood Negative (Negative) Urine Nitrite Negative (Negative) Urine Bilirubin Negative (Negative) Urine Urobilinogen Negative (Negative) Ur Leukocyte Esterase Negative (Negative) SARS-CoV-2, RNA, NAAT (NEGATIVE) 03/02/22 03/02/22 Range/Units 13:26 13:59 WBC (4.8-10.8) K/ul RBC (4.63-6.08) M/uL Hgb (14.0-18.0) g/dl Hct (40.1-51.0) % MCV (80.0-100.0) fL MCH (25.0-34.0) pg MCHC (32.0-36.0) g/dL RDW Std Deviation (36.4-46.3) fL RDW Coeff of Aneudy (11.5-14.5) % Plt Count (130-400) K/uL MPV (9.4-12.4) fL Immature Gran % (Auto) % Neut % (Auto) % Lymph % (Auto) % Crane % (Auto) % Eos % (Auto) % Baso % (Auto) % Neut # (Auto) (1.4-6.5) K/uL Lymph # (Auto) (1.2-3.4) K/uL Crane # (Auto) (0.24-0.82) K/uL Eos # (Auto) (0-0.50) K/uL Baso # (Auto) (0-0.2) K/uL Immature Gran # (Auto) (0.00-0.02) K/uL PT (9.0-12.0) Seconds INR (0.9-1.1) VBG pH (7.36-7.41) VBG pCO2 (38-50) mmHg VBG pO2 mmHg VBG HCO3 mmol/L VBG O2 Saturation % VBG Base Excess mEq/L Sodium (136-145) mmol/L Potassium 4.2 Chloride (98-107) mmol/L Carbon Dioxide (21-32) mmol/L Anion Gap (3-11) BUN (6-23) mg/dl Creatinine (0.6-1.4) mg/dl Est Cr Clr Drug Dosing ml/min Est GFR ( Amer) ml/min Est GFR (Non-Af Amer) ml/min BUN/Creatinine Ratio (10-20) Glucose (70-99(Fasting)) mg/dl POC Glucose (70-99) mg/dl Calcium (8.5-10.1) mg/dl Magnesium (1.7-2.4) mg/dl Total Bilirubin (0.2-1.0) mg/dl Direct Bilirubin TNP AST 19 ALT (7-52) U/L Alkaline Phosphatase (34-104) U/L Troponin I High Sens (0-20) pg/ml Total Protein (6.0-8.3) gm/dl Albumin (3.4-5.0) gm/dl Urine Color Urine Appearance (Clear) Urine pH (4.5-7.5) Ur Specific [place] (1.000-1.030) Urine Protein (Negative) Urine Glucose (UA) (Negative) Urine Ketones (Negative) Urine Blood (Negative) Urine Nitrite (Negative) Urine Bilirubin (Negative) Urine Urobilinogen (Negative) Ur Leukocyte Esterase (Negative) SARS-CoV-2, RNA, NAAT NEGATIVE (NEGATIVE) Administered Medications Insulin Aspart (Insulin Aspart Per Unit) 0 units SC ACHS SAMEERA Stop: 04/01/22 16:45 Last Admin: 03/02/22 17:58 Dose: 3 units Documented By: MIGUEL Co-signed By: CG Discontinued Medications Aspirin (Aspirin Chew 324 Mg) 324 mg PO NOW STA Stop: 03/02/22 13:11 Last Admin: 03/02/22 13:24 Dose: 324 mg Documented By: TETE Sodium Chloride (Nss 1000ml) 1,000 mls @ 999 mls/hr IV .Q1H1M ONE Stop: 03/02/22 12:30 Last Infusion: 03/02/22 13:04 Dose: 0 mls/hr Documented By: Admin: 03/02/22 12:00 Dose: 999 mls/hr Documented By: TETE Insulin Human Regular 10 units (/ Syringe) 10 mls @ 30 mls/min IV ONE ONE Stop: 03/02/22 13:01 Last Admin: 03/02/22 14:18 Dose: 30 mls/min Documented By: THOMAS Co-signed By: JING Imaging Data Radiologist's Impression: Head CT 03/02/22 11:30 CT head/brain wo con CLINICAL HISTORY: 51 years-old Male with left arm paresthesias. Acute strokelike symptoms TECHNIQUE: Multiple axial CT images of the head were obtained without contrast. A dose lowering technique was utilized adhering to the principles of ALARA. CT DOSE: 614.27 mGy.cm COMPARISON: None. FINDINGS: No acute intracranial hemorrhage, midline shift, intracranial mass, hydrocephalus, territorial ischemia or abnormal extra-axial collection. Mild involutional changes. Calcifications of the falx cerebri. The calvarium is intact. Minimal mucosal thickening of the dependent maxillary sinuses. The mastoid air cells are clear. Unremarkable orbits. IMPRESSION: No acute intracranial abnormality. ACT 112: Negative or not required by law. The above report was generated using voice recognition software. It may contain grammatical, syntax or spelling errors. Electronically signed by: Farhat Farah M.D. 03/02/2022 12:14 PM Discharge Plan Visit Data Chief Complaint: Hyperglycemia ED Provider: Mitch Andersen Discharge Problem: Acute hyperglycemia, Paresthesia of left arm Patient Disposition: Admitted As Inpatient Discharge Instructions Interventions: ED Discharge Assessment Last Done: 03/02/22 15:40
[2022-03-02 11:54] LABS: Base Excess VBG -0.2 mEq/L; HCO3 VBG 25 mmol/L; Oxygen Saturation VBG 95.6 %; PCO2 VBG 41 mmHg (38-50); PO2 VBG 71 mmHg; pH VBG 7.39 (7.36-7.41)
[2022-03-02 11:55] LABS: Basophils # (auto) 0.05 K/uL (0-0.2); Basophils % (auto) 0.7 %; Eosinophils # (auto) 0.16 K/uL (0-0.50); Eosinophils % (auto) 2.1 %; Hematocrit (blood only) 44.3 % (40.1-51.0); Hemoglobin 15.9 g/dl (14.0-18.0); Immature Granulocytes # (auto) 0.03 K/uL (0.00-0.02); Immature Granulocytes % (auto) 0.4 %; Lymphocytes # (auto) 2.44 K/uL (1.2-3.4); Lymphocytes % (auto) 32.2 %; Mean Corpuscular Hemoglobin 31.7 pg (25.0-34.0); Mean Corpuscular Hgb Conc 35.9 g/dL (32.0-36.0); Mean Corpuscular Volume 88.2 fL (80.0-100.0); Mean Platelet Volume 11.5 fL (9.4-12.4); Monocytes # (auto) 0.58 K/uL (0.24-0.82); Monocytes % (auto) 7.7 %; Neutrophils # (auto) 4.31 K/uL (1.4-6.5); Neutrophils % (auto) 56.9 %; Platelet Count 158 K/uL (130-400); RDW Coefficient of Variation 12.2 % (11.5-14.5); RDW Standard Deviation 38.8 fL (36.4-46.3); Red Blood Count 5.02 M/uL (4.63-6.08); White Blood Count 7.57 K/ul (4.8-10.8)
[2022-03-02 12:10] LABS: Prothrombin Time 10.4 Seconds (9.0-12.0)
--- NOTE | 2022-03-02 12:15 | CT Scan Report ---
CT head/brain wo con CLINICAL HISTORY: 51 years-old Male with left arm paresthesias. Acute strokelike symptoms TECHNIQUE: Multiple axial CT images of the head were obtained without contrast. A dose lowering tech nique was utilized adhering to the principles of ALARA. CT DOSE: 614.27 mGy.cm COMPARISON: None. FINDINGS: No acute intracranial hemorrhage, midline shift, intracranial mass, hydrocephalus, territorial ischem ia or abnormal extra-axial collection. Mild involutional changes. Calcifications of the falx cerebri. The calvarium is intact. Minimal mucosal thickening of the dependent maxillary sinuses. The mastoid air cells are clear. Unremarkable orbits. IMPRESSION: No acute intracranial abnormality. ACT 112: Negative or not required by law. The above report was generated using voice recognition software. It may contain grammatical, syntax o r spelling errors. Electronically signed by: Farhat Farah M.D. 03/02/2022 12:14 PM
[2022-03-02 12:33] LABS: Alanine Aminotransferase 27 U/L (7-52); Albumin Level 4.3 gm/dl (3.4-5.0); Alkaline Phosphatase 79 U/L (34-104); Anion Gap 7 (3-11); BUN Creatinine Ratio 24.3 (10-20); Bilirubin,Total 0.7 mg/dl (0.2-1.0); Blood Urea Nitrogen 28 mg/dl (6-23); Calcium 9.4 mg/dl (8.5-10.1); Carbon Dioxide 25 mmol/L (21-32); Chloride 100 mmol/L (98-107); Creatinine Clr Calc Pharmacy 89.7 ml/min; Est GFR (African American) 83.7 ml/min; Est GFR (Non-African American) 72.3 ml/min; Glucose 455 mg/dl (70-99(Fasting)); Magnesium 2.1 mg/dl (1.7-2.4); Sodium 132 mmol/L (136-145); Total Protein 7.4 gm/dl (6.0-8.3); Troponin I High Sensitivity 6.5 pg/ml (0-20)
[2022-03-02] MEDS ORDERED: INSULIN HUMAN REGULAR IV STA (12:36)
[2022-03-02 12:57] LABS: Appearance Urine Clear (Clear); Bilirubin Urine Negative (Negative); Blood Urine Negative (Negative); Color Urine Yellow; Glucose Urine UA 3+ (Negative); Ketones Urine Negative (Negative); Leukocyte Esterase Urine Negative (Negative); Nitrite Urine Negative (Negative); Protein Urine Negative (Negative); Specific Gravity Urine 1.038 (1.000-1.030); Urobilinogen Urine Negative (Negative)
[2022-03-02] MEDS ORDERED: INSULIN HUMAN REGULAR PER UNIT 10 UNITS in SYRINGE 9.9 ML IV ONE (13:00)
[2022-03-02] MEDS ORDERED: ASPIRIN CHEW 324 MG PO STA (13:10)
--- NOTE | 2022-03-02 13:54 | History & Physical Report ---
Date of Service March 02, 2022 Assessment & Plan (1) Type II diabetes mellitus: Plan 1. Left arm paresthesias, consider compression neuropathy based on history. TIA/CVA seems much less likely 2. Uncontrolled diabetes mellitus, due in part to medication noncompliance and recent steroid administration 3. Sciatica per patient history - Place in monitored observation - We will check MRI of head and C-spine. - We will defer further CVA work-up as I feel this is not likely in this case, consider if further imaging has significant findings - I will start a low-dose ASA considering patient's diabetes diagnosis - Can continue metformin at previous dosing. Suspect he may need further agents depending on progress. Jardiance not on formulary here so will need to be held until after discharge. Patient should be encouraged to fill prescription and take as directed. - Order diabetic diet and sliding scale insulin, the patient remains here - Check fasting lipids and hemoglobin A1c - If findings remain negative, suspect patient may be discharged tomorrow morning but he will require close outpatient follow-up to ensure proper control of his diabetes History of Present Illness Chief Complaint: Left arm numbness Primary Care Provider: Nahun Williamson MD This is a 51-year-old male with past medical history of a chronic lower back pain, type 2 diabetes mellitus that presents today complaining of left arm numbness. Patient is accompanied by his and is a good historian. Patient tells me that he woke up this morning and noted significant left arm numbness. This involves his entire arm, approximately from the shoulder down to his fingertips. He felt it was worse at the fingertips and involves all 5 of his fingers. There was no weakness in the extremity. He did also note some lower extremity numbness in his feet although he admits that he has neuropathy and this is not changed from baseline. He denies any other neurological symptoms including dysarthria, aphasia, numbness/tingling/weakness in any of the extremities. did not note any speech abnormalities. On further questioning he did note some polyuria and polydipsia. He also noted some issues with blurriness of his vision over the past few weeks. Of note, the patient is a type II diabetic. He is typically on metformin and has been taking this on a regular basis. He states that he was recently started on Jardiance but did not fill the script in several months because the castillo of the medication. Of note as well, he was complaining of some back pain recently and has been on oral steroids which she felt did help the symptoms. Allergies Allergy/AdvReac Type Severity Reaction Status Date / Time No Known Allergies Allergy Verified 03/03/21 19:48 Home Medications Medication Instructions Recorded Confirmed Type atorvastatin 20 mg tablet 20 mg PO QAM 03/03/21 03/03/21 History blue-green algae (bulk) (Spirulina 1 ea miscellaneous QAM 03/03/21 03/03/21 History powder) metformin 500 mg tablet,extended 1,000 mg PO QAM 03/03/21 03/03/21 History release 24 hr codeine 10 mg-guaifenesin 100 mg/5 10 ml PO Q6H PRN cough #237 mL 03/06/21 Rx mL oral liquid dexamethasone 6 mg tablet 6 mg PO DAILY #7 tabs 03/06/21 Rx (Decadron) Past Med/Surg History Medical History Obesity Smoker Surgical History History of laparoscopic cholecystectomy S/P ACL surgery Right Social History Smoking Status: Light tobacco smoker Second Hand Exposure: No; Hx Alcohol Use: Yes Alcohol type: beer Hx Substance Use: No Preferred Language: [place]ralt[place] Communication Ability: Effective 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 Beliefs That Will Affect Care: None Current Living Situation: Spouse Feels Safe at Home: Yes Assistive Devices: Oxygen - Continuous Review of Systems Constitutional: no fever, no chills, no weakness, no weight loss and no weight gain Eyes: as per Subjective / HPI; no diplopia Respiratory: no cough, no chest congestion, no dyspnea and no dyspnea on exertion Cardiovascular: no chest pain, no orthopnea, no palpitations, no lightheadedness and no edema Gastrointestinal: no abdominal pain, no nausea, no vomiting, no constipation and no diarrhea/loose stools Musculoskeletal: no back pain, no neck pain, no joint pain, no stiffness and no myalgia Integumentary: no rash Neurologic: + loss of sensation, + tingling, + numbness and + paresthesia; no gait abnormality, no unsteadiness, no falls, no localized weakness, no generalized weakness, no tremor(s), no abnormal movements, no seizure-like activity, no dizziness, no headache(s), no abnormal speech and no confusion Physical Exam Constitutional: cooperative; no acute distress Neck: trachea midline, no thyromegaly Respiratory: normal respiratory effort Auscultation: lungs clear to auscultation bilaterally; no crackles, no rales, no rhonchi and no wheezes Cardiovascular: Rate/Rhythm: regular rate and regular rhythm Heart Sounds: normal S1 and normal S2 Gastrointestinal (Abdomen): Inspection/Auscultation: abdomen normal to inspe ction Percussion/Palpation: abdomen soft; abdomen nontender, no guarding, abdomen not rigid and no hepatosplenomegaly Skin: no rashes, warm and dry Neurologic: patellar DTR's 2+ bilat, sensation intact and PERRL, EOMI, accommodation nl, no face palsy, no dysarthria Results & Data Results & Data ([facility]) Vital Signs (Past 12 Hours) Vital Signs Temp Pulse Pulse Resp BP BP Pulse Ox 03/02/22 13:27 82 19 143/93 H 96 03/02/22 11:36 36.6 C 83 19 131/88 93 O2 Del Method 03/02/22 13:27 Room Air 03/02/22 11:36 Room Air Laboratory Results Laboratory Results WBC 7.57 K/ul (4.8-10.8) 03/02/22 11:29 RBC 5.02 M/uL (4.63-6.08) 03/02/22 11:29 Hgb 15.9 g/dl (14.0-18.0) 03/02/22 11:29 Hct 44.3 % (40.1-51.0) 03/02/22 11:29 MCV 88.2 fL (80.0-100.0) 03/02/22 11:29 MCH 31.7 pg (25.0-34.0) 03/02/22 11:29 MCHC 35.9 g/dL (32.0-36.0) 03/02/22 11:29 RDW Std Deviation 38.8 fL (36.4-46.3) 03/02/22 11:29 RDW Coeff of Aneudy 12.2 % (11.5-14.5) 03/02/22 11:29 Plt Count 158 K/uL (130-400) 03/02/22 11:29 MPV 11.5 fL (9.4-12.4) 03/02/22 11:29 Immature Gran % (Auto) 0.4 % 03/02/22 11:29 Neut % (Auto) 56.9 % 03/02/22 11:29 Lymph % (Auto) 32.2 % 03/02/22 11:29 Calvert % (Auto) 7.7 % 03/02/22 11:29 Eos % (Auto) 2.1 % 03/02/22 11:29 Baso % (Auto) 0.7 % 03/02/22 11:29 Neut # (Auto) 4.31 K/uL (1.4-6.5) 03/02/22 11: Lymph # (Auto) 2.44 K/uL (1.2-3.4) 03/02/22 11:29 Calvert # (Auto) 0.58 K/uL (0.24-0.82) 03/02/22 11:29 Eos # (Auto) 0.16 K/uL (0-0.50) 03/02/22 11:29 Baso # (Auto) 0.05 K/uL (0-0.2) 03/02/22 11:29 Immature Gran # (Auto) 0.03 K/uL (0.00-0.02) H 03/02/22 11:29 PT 10.4 Seconds (9.0-12.0) 03/02/22 11:29 INR 1.0 (0.9-1.1) 03/02/22 11:29 VBG pH 7.39 (7.36-7.41) 03/02/22 11:36 VBG pCO2 41 mmHg (38-50) 03/02/22 11:36 VBG pO2 71 mmHg 03/02/22 11:36 VBG HCO3 25 mmol/L 03/02/22 11:36 VBG O2 Saturation 95.6 % 03/02/22 11:36 VBG Base Excess -0.2 mEq/L 03/02/22 11:36 Sodium 132 mmol/L (136-145) L 03/02/22 11:29 Potassium TNP 03/02/22 11:29 Chloride 100 mmol/L (98-107) 03/02/22 11:29 Carbon Dioxide 25 mmol/L (21-32) 03/02/22 11:29 Anion Gap 7 (3-11) 03/02/22 11:29 BUN 28 mg/dl (6-23) H 03/02/22 11:29 Creatinine 1.15 mg/dl (0.6-1.4) 03/02/22 11:29 Est Cr Clr Drug Dosing 89.7 ml/min 03/02/22 11:29 Est GFR ( Amer) 83.7 ml/min 03/02/22 11:29 Est GFR (Non-Af Amer) 72.3 ml/min 03/02/22 11:29 BUN/Creatinine Ratio 24.3 (10-20) H 03/02/22 11:29 Glucose 455 mg/dl (70-99(Fasting)) H* 03/02/22 11:29 POC Glucose 344 mg/dl (70-99) H* 03/02/22 11:37 Calcium 9.4 mg/dl (8.5-10.1) 03/02/22 11:29 Magnesium 2.1 mg/dl (1.7-2.4) 03/02/22 11:29 Total Bilirubin 0.7 mg/dl (0.2-1.0) 03/02/22 11:29 Direct Bilirubin TNP 03/02/22 11:29 AST TNP 03/02/22 11:29 ALT 27 U/L (7-52) 03/02/22 11:29 Alkaline Phosphatase 79 U/L (34-104) 03/02/22 11:29 Troponin I High Sens 6.5 pg/ml (0-20) 03/02/22 11:29 Total Protein 7.4 gm/dl (6.0-8.3) 03/02/22 11:29 Albumin 4.3 gm/dl (3.4-5.0) 03/02/22 11:29 Urine Color Yellow 03/02/22 12:33 Urine Appearance Clear (Clear) 03/02/22 12:33 Urine pH 5.0 (4.5-7.5) 03/02/22 12:33 Ur Specific Piercy 1.038 (1.000-1.030) H 03/02/22 12:33 Urine Protein Negative (Negative) 03/02/22 12:33 Urine Glucose (UA) 3+ (Negative) H 03/02/22 12:33 Urine Ketones Negative (Negative) 03/02/22 12:33 Urine Blood Negative (Negative) 03/02/22 12:33 Urine Nitrite Negative (Negative) 03/02/22 12:33 Urine Bilirubin Negative (Negative) 03/02/22 12:33 Urine Urobilinogen Negative (Negative) 03/02/22 12:33 Ur Leukocyte Esterase Negative (Negative) 03/02/22 12:[address] 03/02/22 11:30 CT head/brain wo con CLINICAL HISTORY: 51 years-old Male with left arm paresthesias. Acute strokelike symptoms TECHNIQUE: Multiple axial CT images of the head were obtained without contrast. A dose lowering technique was utilized adhering to the principles of ALARA. CT DOSE: 614.27 mGy.cm COMPARISON: None. FINDINGS: No acute intracranial hemorrhage, midline shift, intracranial mass, hydrocephalus, territorial ischemia or abnormal extra-axial collection. Mild involutional changes. Calcifications of the falx cerebri. The calvarium is intact. Minimal mucosal thickening of the dependent maxillary sinuses. The mastoid air cells are clear. Unremarkable orbits. IMPRESSION: No acute intracranial abnormality. ACT 112: Negative or not required by law. The above report was generated using voice recognition software. It may contain grammatical, syntax or spelling errors. Electronically signed by: Farhat Farah M.D. 03/02/2022 12:14 PM PG Care Time/CCT Total # of Minutes Spent Total Time Spent with Patient: Total time spent is greater than 50% in coordination of care (as documented) at patient's floor/unit and/or counseling patient: Coding Level of Care Code INT OBSERVATION CARE 70M LVL 3 Diagnoses Type II diabetes mellitus E11.9
[2022-03-02 14:55] LABS: Aspartate Aminotransferase 19 U/L (13-39); Potassium 4.2 mmol/L (3.5-5.1)
--- NOTE | 2022-03-02 16:19 | Magnetic Resonance Report ---
MRI OF THE CERVICAL SPINE WITHOUT CONTRAST CLINICAL HISTORY: Left upper extremity paresthesias. COMPARISON: None. TECHNIQUE: Utilizing a 1.5 Gale magnet and dedicated coil, multiplanar, multiecho imaging of the ce rvical spine was performed without IV contrast. FINDINGS: Alignment of the cervical spine is anatomic. Vertebral heights are maintained. No suspicious marrow r eplacement is present. Cervical cord signal and caliber are normal. There is no intracanalicular mass or fluid collection. Paravertebral soft tissues are unremarkable. C2-C3: Central canal is patent. There is mild facet arthrosis. There is no significant neural forami nal stenosis. C3-C4: Central canal is patent. There is mild facet arthrosis. There is minimal narrowing of the lef t neural foramen. C4-C5: Central canal is patent. There is mild facet arthrosis. Right neural foramen is patent. Mild narrowing of the left neural foramen. C5-C6: There is a tiny left paracentral disc protrusion. Central canal is patent. Moderate facet art hrosis is present. Right neural foramen is patent. There is moderate narrowing of the left neural for amen due to uncovertebral hypertrophy and facet arthrosis. C6-C7: Central canal is patent. There is moderate facet arthrosis. Neural foramen are patent. C7-T1: Central canal and neural foramen are patent. There is mild facet arthrosis. IMPRESSION: 1. Normal cervical cord signal and caliber. Patent central canal. 2. Minimal degenerative disc disease. Moderate multilevel facet arthrosis. 3. Mild to moderate multilevel neural foraminal stenosis, as detailed above. ACT 112: Negative or not required by law. Electronically signed by: Shamar Vides M.D. 03/02/2022 4:17 PM
[2022-03-02] MEDS ORDERED: DEXTROSE 50% 50 ML SYRINGE IV PRN (16:46)
[2022-03-02] MEDS ORDERED: ONDANSETRON INJ 2 MG/ML 2 ML VIAL IV PRN (16:46)
[2022-03-02] MEDS ORDERED: ACETAMINOPHEN 325 MG TAB PO PRN (16:46)
[2022-03-02] MEDS ORDERED: GLUCAGON FOR INJ 1 MG VIAL SQ PRN (16:46)
[2022-03-02] MEDS ORDERED: CARBOHYDRATES FOR HYPOGLYCEMIA PO PRN (16:46)
[2022-03-02] MEDS ORDERED: GLUCOSE 10 TAB/TUBE PO PRN (16:46)
[2022-03-02] MEDS ORDERED: GLUCOSE 40% GEL 15 GM TUBE PO PRN (16:46)
--- NOTE | 2022-03-02 16:52 | Magnetic Resonance Report ---
MRI OF THE BRAIN WITHOUT CONTRAST CLINICAL HISTORY: Left upper extremity paresthesias. COMPARISON STUDY: Head CT performed earlier today. TECHNIQUE: Utilizing a 1.5 Gale magnet and dedicated coil, multiplanar, multiecho imaging of the bra in was performed without IV contrast. FINDINGS: This study is mildly compromised by motion artifact. There are no foci of restricted diffus ion to suggest acute infarct. No acute intracranial hemorrhage, midline shift or mass effect is prese nt. Brain volume is normal. Ventricular system is normal. Basal cisterns are patent. No extra-axial c ollections are present. On coronal FLAIR image 16 of 20, note is made of apparent increased cortical T2 signal within the right frontal lobe. This could correspond to an abnormality measuring 7 mm in ex tent on the axial T2-weighted sequence image 18 of 25. This finding could be artifactual. Incidental note is made of prominence of the left transverse sinus which is of no clinical significance. Mild wh ite matter T2 hyperintense foci favor mild small vessel disease. Suspected small mucous retention cys ts within the bilateral maxillary sinuses are present. There is old defect of the medial wall of the right orbit. Ossification along the falx is noted. IMPRESSION: 1. No acute intracranial findings. No evidence for acute infarction. 2. Possible subcentimeter focus of increased T2 signal within the cortex of the right frontal lobe, a s described above. This finding could be artifactual although is indeterminate given the clinical his tory. A nonemergent MRI of the brain with and without contrast is recommended to exclude an underlyin g lesion and to confirm a true abnormality. ACT 112: Negative or not required by law. Electronically signed by: Shamar Vides M.D. 03/02/2022 4:49 PM
[2022-03-02] MEDS: INSULIN ASPART PER UNIT SC SCH ×2 (17:58→21:14)
--- NOTE | 2022-03-03 05:59 | Electrocardiogram Report ---
Test Reason : Blood Pressure : / mmHG Vent. Rate : 080 BPM Atrial Rate : 080 BPM P-R Int : 134 ms QRS Dur : 082 ms QT Int : 364 ms P-R-T Axes : -04 020 -01 degrees QTc Int : 419 ms Normal sinus rhythm Normal ECG When compared with ECG of 03-MAR-2021 19:27, Nonspecific T wave abnormality has improved Confirmed by Peewee Del Toro ([id number]) on 03/03/2022 5:59:17 AM Referred By: REFERRED SELF Confirmed By:Peewee Del Toro
[2022-03-03] MEDS: INSULIN ASPART PER UNIT SC SCH (07:57)
[2022-03-03] MEDS ORDERED: metFORMIN HCL ER 500 MG TABCR PO SCH (09:00)
[2022-03-03] MEDS ORDERED: ATORVASTATIN 20 MG TAB PO SCH (09:00)
[2022-03-03] MEDS ORDERED: ASPIRIN 81 MG ECTAB PO SCH (09:00)
[2022-03-03 09:51] LABS: Basophils # (auto) 0.07 K/uL (0-0.2); Eosinophils # (auto) 0.19 K/uL (0-0.50); Eosinophils % (auto) 2.7 %; Hemoglobin 15.6 g/dl (14.0-18.0); Immature Granulocytes # (auto) 0.03 K/uL (0.00-0.02); Immature Granulocytes % (auto) 0.4 %; Lymphocytes # (auto) 2.21 K/uL (1.2-3.4); Lymphocytes % (auto) 31.4 %; Mean Corpuscular Hemoglobin 31.8 pg (25.0-34.0); Mean Corpuscular Hgb Conc 36.3 g/dL (32.0-36.0); Mean Corpuscular Volume 87.6 fL (80.0-100.0); Mean Platelet Volume 11.4 fL (9.4-12.4); Monocytes # (auto) 0.41 K/uL (0.24-0.82); Monocytes % (auto) 5.8 %; Neutrophils # (auto) 4.13 K/uL (1.4-6.5); Neutrophils % (auto) 58.7 %; Platelet Count 145 K/uL (130-400); RDW Coefficient of Variation 12.4 % (11.5-14.5); RDW Standard Deviation 39.1 fL (36.4-46.3); Red Blood Count 4.91 M/uL (4.63-6.08); White Blood Count 7.04 K/ul (4.8-10.8)
[2022-03-03 10:14] LABS: Anion Gap 6 (3-11); BUN Creatinine Ratio 21.4 (10-20); Blood Urea Nitrogen 22 mg/dl (6-23); Calcium 8.9 mg/dl (8.5-10.1); Carbon Dioxide 24 mmol/L (21-32); Chloride 104 mmol/L (98-107); Cholesterol 280 mg/dl (0-200); Creatinine Clr Calc Pharmacy 98.3 ml/min; Est GFR (African American) 95.7 ml/min; Est GFR (Non-African American) 82.5 ml/min; Glucose 216 mg/dl (70-99(Fasting)); HDL Cholesterol 39 mg/dl; Magnesium 1.9 mg/dl (1.7-2.4); Sodium 134 mmol/L (136-145); Triglycerides 622 mg/dl (0-150)
[2022-03-03 10:20] LABS: Estimated Average Glucose 203 mg/dl; Hemoglobin A1C 8.7 % (4.5-5.6)
[2022-03-03 10:37] LABS: Chol HDL Ratio 7.2 (0-5)
--- NOTE | 2022-03-03 14:29 | Discharge Summary ---
Date of Service March 03, 2022 Admission HPI Per Admitting Provider This is a 51-year-old male with past medical history of a chronic lower back pain, type 2 diabetes mellitus that presents today complaining of left arm numbness. Patient is accompanied by his and is a good historian. Patient tells me that he woke up this morning and noted significant left arm numbness. This involves his entire arm, approximately from the shoulder down to his fingertips. He felt it was worse at the fingertips and involves all 5 of his fingers. There was no weakness in the extremity. He did also note some lower extremity numbness in his feet although he admits that he has neuropathy and this is not changed from baseline. He denies any other neurological symptoms including dysarthria, aphasia, numbness/tingling/weakness in any of the extremities. did not note any speech abnormalities. On further questioning he did note some polyuria and polydipsia. He also noted some issues with blurriness of his vision over the past few weeks. Of note, the patient is a type II diabetic. He is typically on metformin and has been taking this on a regular basis. He states that he was recently started on Jardiance but did not fill the script in several months because the castillo of the medication. Of note as well, he was complaining of some back pain recently and has been on oral steroids which she felt did help the symptoms. Principal Diagnosis left UE Numbness, Hyperglycemia Discharge Exam The patient is awake, alert and oriented 3, well developed and well nourished, normocephalic and atraumatic, lying in bed and in no acute distress. HEENT--PERRL, EOMI, mucous membranes and oropharynx mildly dry Neck--supple. No JVD. No bruits. Thyroid normal, trachea midline, no adenop athy. Heart--normal S1 and S2. No murmurs, rubs or gallops. Lungs--clear bilaterally, no respiratory distress, no accessory muscle use. Abdomen--normal bowel sounds and soft. Mild epigastric and left sided abdominal pain Extremities--no cyanosis or clubbing. No edema. Dermatologic--normal skin turgor, normal color, no abnormal lymph nodes, no rash. Neurologic--cranial nerves II through XII grossly intact. Rheumatologic--normal range of motion. Psychiatric--normal affect. Discharge Data Allergies Allergy/AdvReac Type Severity Reaction Status Date / Time No Known Allergies Allergy Verified 03/03/21 19:48 Consultations 03/02/22 13:42 ED Decision to Admit Stat Ordered Studies 03/02/22 11:30 CT head/brain wo con Stat 03/02/22 14:06 MRI Brain [MR brain wo con] Routine MRI Cervical [MR cervical spine wo con] Routine Hospital Course (1) Type II diabetes mellitus: Plan 1. Left arm paresthesias, consider compression neuropathy based on history. TIA/CVA seems much less likely 2. Uncontrolled diabetes mellitus, due in part to medication noncompliance and recent steroid administration 3. Sciatica per patient history His Numbness resolved MRI brain and C spine did not show any acute pathology His blood glucose was poorly controlled, he could not refill his Jardiance due to cost Will increase his Metformin to 1000mg BID To follow up with endocrinology Total Time Total Time Spent Total Time Spent (In Minutes): 35 Discharge Plan Discharge Items Patient Disposition: Home - Self-Care Reason For Visit: LUE NUMBNESS, HYPERGLYCEMIA Discharge Diagnosis: Hyperglycemia, LUE Numbness-resolved Activity: Resume your previous activity Non-emergency contact: Primary Care Provider Call non-emergency contact if: you have any medication questions Follow-up/Referrals: Nahun Williamson MD [Primary Care Provider] - (Follow up appointment scheduled with Dr. Belcher.) Gladis Beclher DO [Resident] - 03/11/22 1:10 pm (Please follow up with Dr. Belcher on Wednesday03/11/22 at 1:10 pm. Please arrive to the office at 12:50 pm for your appointment. If you are unable to keep this appointment, please call the office to reschedule at [phone].) Diet: Carb Consistent or DM2 Addtl Attending Provider Instructions: please make appointment to follow up with your PCP and Endocrinology Pending Studies at Discharge: No Stand-Alone Forms: My [facility] GOOM, Smoking Cessation Medications and DC Order Prescriptions: New metformin 500 mg Tablet Extended Release 24 Hr 1,000 mg PO BID Qty: 60 0RF Continued atorvastatin 20 mg tablet 20 mg PO QAM Spirulina Powder 1 ea MISCELLANEOUS QAM codeine-guaifenesin 10-100 mg/5 mL liquid 10 ml PO Q6H PRN (Reason: cough) Qty: 237 0RF Discontinued metformin 500 mg tablet extended release 24 hr 1,000 mg PO QAM dexamethasone [Decadron] 6 mg tablet 6 mg PO DAILY Qty: 7 0RF Discharge Orders: Discharge Order (Routine); Ordered 03/03/22 Ordered By: Sharla Coburn/Other Patient Handouts: High Blood Sugar (Hyperglycemia) Admission Data Admit Date/Time: 03/02/22 14:06 Attending Provider: Sharla Whitfield Admit Provider: Marcos Kowalski Primary Care Provider: Nahun Williamson Other Providers: Marcos Kowalski Other Interventions: Discharge Summary Assessment (RN) Last Done: 03/03/22 11:02 Coding Level of Care Code D/C DAY MANAGEMENT >30 MINS Diagnoses Type II diabetes mellitus E11.9 Time Spent (min) 35
== END 2022-03-03 11:17 | disposition home or self-care (01) ==
LOC: ED 11:22 → 2S 11:22 → SUATTDRO 14:06 → 2S 15:40